=== PATIENT | male | born 1930 | race Caucasian/White ===

== ENCOUNTER 2016-12-18 22:30 | Inpatient (IN) | payer MEDICARE, OTHER ==
[2016-12-18] MEDS ORDERED: VANCOMYCIN 1,000 MG in SODIUM CHLORIDE 0.9% 250 ML IVPB STA (22:45)
[2016-12-18] MEDS ORDERED: PIPERACILLIN-TAZOBACTAM 3.375 GM in DEXTROSE/WATER 1 50ML.BAG IVPB STA (22:45)
[2016-12-18] MEDS ORDERED: DILTIAZEM 125 MG in SODIUM CHLORIDE 0.9% 100 ML IV ONE (22:56)
[2016-12-18 23:02] LABS: Basophils # (A) 0.1 k/uL (0-0.2); Basophils % (A) 0 %; CH 25.1; CHCM 31.2; Eosinophils % (A) 0 %; HCT 27.6 % (39.0-53.0); HDW 3.56; HGB 8.4 gm/dL (13.0-17.5); Hypochromasia Marked; Luc # (Auto) 0.27; Luc % (Auto) 1; Lymphocytes # (A) 0.3 k/uL (1.0-4.8); Lymphocytes % (A) 2 %; MCH 24.7 pg (25.0-35.0); MCHC 30.6 g/dL (31.0-37.0); MCV 80.7 fL (80.0-100.0); Mean Platelet Volume 7.2; Monocytes # (A) 1.2 k/uL (0-1.0); Monocytes % (A) 7 %; Neutrophils # (A) 16.7 k/uL (1.3-7.7); Neutrophils % (A) 90 %; Poikilocytosis Slight; RBC 3.42 m/uL (4.30-5.90); RDW 15.2 % (11.5-15.5); WBC 18.6 k/uL (3.8-10.6); WBC (Perox) 19.24
[2016-12-18 23:13] LABS: INR 2.3 (<1.1); Partial Thromboplastin Time 47.1 sec (22.0-30.0); Prothrombin Time 21.9 sec (9.0-12.0)
[2016-12-18] MEDS ORDERED: ACETAMINOPHEN TAB 500 MG TAB PO STA (23:15)
[2016-12-18 23:37] LABS: ALT 19 U/L (21-72); AST 32 U/L (17-59); Alkaline Phosphatase 94 U/L (38-126); Anion Gap 14 mmol/L; Blood Urea Nitrogen 20 mg/dL (9-20); Carbon Dioxide 22 mmol/L (22-30); Chloride 104 mmol/L (98-107); Glucose 220 mg/dL (74-99); Magnesium 1.4 mg/dL (1.6-2.3); Non-African American GFR(MDRD) >60 (>60 ml/min/1.73 sqM); Potassium 3.4 mmol/L (3.5-5.1); Sodium 140 mmol/L (137-145); Total Bilirubin 0.6 mg/dL (0.2-1.3); Total Protein 6.7 g/dL (6.3-8.2)
[2016-12-18 23:41] LABS: Creatine Kinase MB 3.5 ng/mL (0.0-2.4); Troponin I 0.912 ng/mL (0.000-0.034)
[2016-12-18] MEDS ORDERED: HEPARIN SODIUM,PORCINE 5,000 UNIT/ML 1 ML VIAL IV ONE (23:41)
[2016-12-18] MEDS ORDERED: HEPARIN SODIUM,PORCINE/D5W PMX 25,000 UNIT in DEXTROSE/WATER 1 500ML.BAG IV SCH (23:45)
--- NOTE | 2016-12-19 00:02 | ED ---
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 The patient reportedly had sudden onset of shortness of breath around 7 PM this evening. Upon arrival to the outside hospital his blood pressure was elevated any appear to be in flash pulmonary edema. He was started on BiPAP and given nitro paste and Lasix. He improved however remains tachycardic at their facility. There is also note of some ST depression in the lateral leads. Troponin was negative at the outside hospital. By the time the patient arrived here he appeared to not be in respiratory distress. He is awake and alert and answering questions. He denies any chest pain or history of chest pain today. Blood pressure was little bit low upon arrival and thus Nitropaste was taken off and he is given a 500 mL bolus with good result. Initial EKG showed atrial fibrillation with rapid ventricular rate and some ST depression in the lateral leads. Patient denies a history of A. fib however is on Coumadin. He currently denies any other complaints. The patient is DO NOT RESUSCITATE however is okay with intubation. - Related Data Home Medications Medication Instructions Recorded Confirmed Aspirin EC [Ecotrin Low Dose] 162 mg PO DAILY@79912/18/16 12/18/16 Atorvastatin [Lipitor] 10 mg PO HS@199912/18/16 12/18/16 Cholecalciferol [Vitamin D3] 2,000 unit PO DAILY@79912/18/16 12/18/16 Cyanocobalamin [Vitamin B-12 1,000 mcg SQ Q30D 12/18/16 12/18/16 Injection] Ferrous Sulfate [Feosol] 325 mg PO DAILY@79912/18/16 12/18/16 Isosorbide Mononitrate ER [Imdur] 30 mg PO DAILY@79912/18/16 12/18/16 Lactose-Reduced Food [Boost] 237 ml PO HS 12/18/16 12/18/16 Lansoprazole 30 mg PO DAILY@79912/18/16 12/18/16 Lisinopril [Zestril] 10 mg PO DAILY@0800 12/18/16 12/18/16 Melatonin 3 mg PO HS 12/18/16 12/18/16 Sertraline HCl [Zoloft] 50 mg PO DAILY@0800 12/18/16 12/18/16 Warfarin Sodium [Coumadin] 2 mg PO HS@199912/18/16 12/18/16 metFORMIN HCL [Glucophage] 500 mg PO BID@08,199912/18/16 12/18/16 Allergies Allergy/AdvReac Type Severity Reaction Status Date / Time No Known Allergies Allergy Verified 12/18/16 22:58 Review of Systems ROS Statement: Those systems with pertinent positive or pertinent negative responses have been documented in the HPI. ROS Other: All systems not noted in ROS Statement are negative. Past Medical History Past Medical History: Cancer, CVA/TIA, Diabetes Mellitus Additional Past Medical History / Comment(s): (L) sided weakness r/t previous stroke. History of Any Multi-Drug Resistant Organisms: Unobtainable Past Surgical History: Unable to Obtain Past Psychological History: Unable to Obtain Smoking Status: Never smoker Past Alcohol Use History: None Reported Past Drug Use History: None Reported General Exam - General Exam Comments Initial Comments: Constitutional: Awake alert Appears comfortable Head: Normocephalic atraumatic Eyes: no conjunctival injection No scleral icterus EOMI Neck: No JVD Supple Heart: Regular rate rhythm normal S1-S2 no murmurs Lungs: There is bilateral rales at the bases No wheezing Abdomen: Soft nondistended nontender Extremities: 1+ lower extremity edema DP pulses intact Radial pulses intact Neuro: A&Ox3 No focal neurologic deficits Psych: Appropriate mood and affect Limitations: no limitations Course Vital Signs 12/18/16 12/18/16 12/18/16 22:31 22:56 23:33 Temperature 99.4 F Pulse Rate 120 H 118 H 119 H Respiratory 28 H 24 28 H Rate Blood Pressure 89/64 109/72 93/44 O2 Sat by Pulse 100 100 100 Oximetry 12/18/16 23:52 Temperature Pulse Rate 107 H Respiratory 30 H Rate Blood Pressure 102/40 O2 Sat by Pulse 100 Oximetry - Reevaluation(s) Reevaluation #1: 12/19/16 00:01 EKG is showing atrial fibrillation with a rate of 128. There is significant ST depression in V3 through V6 with no reciprocal changes. Does not appear to be criteria for posterior STEMI. QTC is 540. Other intervals are normal. No ectopy. Medical Decision Making - Medical Decision Making This is an 86-year-old male presents emergency report for respiratory distress. The patient appear to be in flash pulmonary edema. Troponin is elevated head 0.9 and he does have evidence for an STEMI on his EKG. I spoke with Dr. Sánchez about this and he stated that he would see him in the morning. He did not think there is any emergent need for cardiac cath tonight. The patient has been comfortable on BiPAP since he arrived. He was started on Cardizem drip with good result. His blood pressure is now 102/64. The patient's heart rate is ranging from 100 to 1:15. At this time I feel that he is stable for transfer to the floor. Dr. Valenzuela accepts the admission. - Lab Data Result diagrams: 12/18/16 22:40 12/18/16 22:40 Lab Results 12/18/16 12/18/16 12/18/16 Range/Units 22:40 22:40 22:40 WBC 18.6 H (3.8-10.6) k/uL RBC 3.42 L (4.30-5.90) m/uL Hgb 8.4 L (13.0-17.5) gm/dL Hct 27.6 L (39.0-53.0) % MCV 80.7 (80.0-100.0) fL MCH 24.7 L (25.0-35.0) pg MCHC 30.6 L (31.0-37.0) g/dL RDW 15.2 (11.5-15.5) % Plt Count 394 (150-450) k/uL Neutrophils % 90 % Lymphocytes % 2 % Monocytes % 7 % Eosinophils % 0 % Basophils % 0 % Neutrophils # 16.7 H (1.3-7.7) k/uL Lymphocytes # 0.3 L (1.0-4.8) k/uL Monocytes # 1.2 H (0-1.0) k/uL Eosinophils # 0.0 (0-0.7) k/uL Basophils # 0.1 (0-0.2) k/uL Hypochromasia Marked Poikilocytosis Slight PT 21.9 H (9.0-12.0) sec INR 2.3 (<1.1) APTT 47.1 H (22.0-30.0) sec Sodium (137-145) mmol/L Potassium (3.5-5.1) mmol/L Chloride (98-107) mmol/L Carbon Dioxide (22-30) mmol/L Anion Gap mmol/L BUN (9-20) mg/dL Creatinine (0.66-1.25) mg/dL Est GFR (MDRD) Af Amer (>60 ml/min/1.73 sqM) Est GFR (MDRD) Non-Af (>60 ml/min/1.73 sqM) Glucose (74-99) mg/dL Plasma Lactic Acid Jero (0.7-2.0) mmol/L Calcium (8.4-10.2) mg/dL Magnesium (1.6-2.3) mg/dL Total Bilirubin (0.2-1.3) mg/dL AST (17-59) U/L ALT (21-72) U/L Alkaline Phosphatase (38-126) U/L CK-MB (CK-2) 3.5 H* (0.0-2.4) ng/mL Troponin I 0.912 H* (0.000-0.034) ng/mL NT-Pro-B Natriuret Pep pg/mL Total Protein (6.3-8.2) g/dL Albumin (3.5-5.0) g/dL 12/18/16 12/18/16 12/18/16 Range/Units 22:40 22:40 22:40 WBC (3.8-10.6) k/uL RBC (4.30-5.90) m/uL Hgb (13.0-17.5) gm/dL Hct (39.0-53.0) % MCV (80.0-100.0) fL MCH (25.0-35.0) pg MCHC (31.0-37.0) g/dL RDW (11.5-15.5) % Plt Count (150-450) k/uL Neutrophils % % Lymphocytes % % Monocytes % % Eosinophils % % Basophils % % Neutrophils # (1.3-7.7) k/uL Lymphocytes # (1.0-4.8) k/uL Monocytes # (0-1.0) k/uL Eosinophils # (0-0.7) k/uL Basophils # (0-0.2) k/uL Hypochromasia Poikilocytosis PT (9.0-12.0) sec INR (<1.1) APTT (22.0-30.0) sec Sodium 140 (137-145) mmol/L Potassium 3.4 L (3.5-5.1) mmol/L Chloride 104 (98-107) mmol/L Carbon Dioxide 22 (22-30) mmol/L Anion Gap 14 mmol/L BUN 20 (9-20) mg/dL Creatinine 1.13 (0.66-1.25) mg/dL Est GFR (MDRD) Af Amer >60 (>60 ml/min/1.73 sqM) Est GFR (MDRD) Non-Af >60 (>60 ml/min/1.73 sqM) Glucose 220 H (74-99) mg/dL Plasma Lactic Acid Jero 2.2 H* (0.7-2.0) mmol/L Calcium 8.0 L (8.4-10.2) mg/dL Magnesium 1.4 L (1.6-2.3) mg/dL Total Bilirubin 0.6 (0.2-1.3) mg/dL AST 32 (17-59) U/L ALT 19 L (21-72) U/L Alkaline Phosphatase 94 (38-126) U/L CK-MB (CK-2) (0.0-2.4) ng/mL Troponin I (0.000-0.034) ng/mL NT-Pro-B Natriuret Pep 07946 pg/mL Total Protein 6.7 (6.3-8.2) g/dL Albumin 2.6 L (3.5-5.0) g/dL Disposition Clinical Impression: Atrial fibrillation with RVR, NSTEMI (non-ST elevated myocardial infarction), Pulmonary edema Disposition: ADMITTED IP TO THIS HOSP Condition: Serious
[2016-12-19] MEDS ORDERED: NITROGLYCERIN SL TABS 0.4 MG TAB SUBLINGUAL PRN (00:04)
[2016-12-19] MEDS: MAGNESIUM SULFATE-D5W PMX 1 GM in DEXTROSE/WATER 1 100ML.BAG IVPB SCH ×2 (00:55→03:27)
[2016-12-19 04:15] LABS: INR 2.1 (<1.1); Partial Thromboplastin Time 48.8 sec (22.0-30.0); Prothrombin Time 19.8 sec (9.0-12.0)
[2016-12-19 05:15] LABS: Creatine Kinase MB 14.2 ng/mL (0.0-2.4)
[2016-12-19 08:28] LABS: Hemoglobin A1C 6.1 % (4.2-6.1)
[2016-12-19] MEDS: SERTRALINE 50 MG TAB PO SCH (08:40)
[2016-12-19] MEDS: PANTOPRAZOLE 40 MG TABLET PO SCH (08:40)
[2016-12-19 08:56] LABS: Glucose,Whole Blood 192 mg/dL (75-99)
[2016-12-19] MEDS ORDERED: LISINOPRIL 2.5 MG TAB PO SCH (09:00)
--- NOTE | 2016-12-19 09:29 | XR ---
EXAMINATION TYPE: XR chest 1V portable DATE OF EXAM: 12/19/2016 9:18 AM CLINICAL HISTORY: Heart attack and congestion, CHF. TECHNIQUE: Single AP portable upright view of the chest is obtained. COMPARISON: Outside chest x-ray from one day earlier FINDINGS: There is persistent mild cardiomegaly with central perihilar opacities felt to reflect hermes ma redemonstrated. Some increasing central vascular congestion is noted. Interval improvement in righ t midlung linear atelectasis is noted. No large pleural effusion or pneumothorax is seen bilaterally. Visualized osseous structures are intact. IMPRESSION: Mild cardiomegaly with central bilateral perihilar edema and/or infiltrates, suspect CHF exacerbation redemonstrated, slight worsening in central vascular congestion noted as there is increa sing bilateral hilar prominence present.
--- NOTE | 2016-12-19 10:51 | CONS ---
DATE OF CONSULTATION: Mr. Noble is an 86-year-old male who transferred from [facility]. He is not quite sure about his prior cardiac history, but apparently he has sustained a cerebrovascular accident recently. He presented to [facility] with symptoms of progressive dyspnea and had ST segment depression in the inferolateral leads, was transferred to [facility] for further evaluation. Apparently, the family initially wanted to go to [facility] but no bed was available. Patient denies any chest pain, but he is complaining of progressive dyspnea, cough. He denies any dizziness or palpitation. He sleeps in the chair because of his back. He has peripheral edema. He denies any prior knowledge of history of congestive heart failure or history of myocardial infarction. On presentation to the emergency room, he was in atrial fibrillation, subsequently converted back to sinus mechanism. He EKG initially showed ST segment depression that improved when he was back in sinus mechanism. Reviewing the EKG from [facility], there was significant ST segment depression in the inferolateral leads and he was tachycardic at that time. Patient has cough but no fever. He denies any history of significant obstructive lung disease. He is somewhat limited in his physical activity. His coronary risk factor is positive for hypertension, diabetes, hyperlipidemia. He is a nonsmoker. His medications include metformin, Coumadin, melatonin, Zestril 10 mg daily, isosorbide mononitrate 30 mg daily, iron, Lipitor 10 mg daily, aspirin. REVIEW OF SYSTEMS: RESPIRATORY SYSTEM: He has dyspnea on exertion and cough. No fever. GI SYSTEM: He denies any recent GI bleeding. No peptic ulcer disease. SYSTEM: No dysuria or hematuria. NERVOUS SYSTEM: He had the stroke as noted. PHYSICAL EXAMINATION: He is an 86-year-old male, alert, mildly dyspneic. Blood pressure 125/60 with a heart rate in the 80s. HEAD: Normocephalic. EYES: Sclerae nonicteric. Neck with increased jugular venous pressure. Lungs with crackles and rales at the bases. HEART: Regular rate and rhythm. S1, S2, no S3, with systolic murmur heard at the base. No diastolic murmur. No rub. ABDOMEN: Soft, nontender, positive bowel sounds. No organomegaly. EXTREMITIES: +1 edema bilaterally. Lab data revealed an INR of 2.3. Hemoglobin of 8.4. His BUN and creatinine are 20 and 1.1. His troponin 0.912 and 7.0. NT-proBNP 15,200. His plasma lactic acid was 2.2 yesterday, 1.4 today. His initial EKG revealed atrial fibrillation with a rate of [address] segment depression in the lateral leads and subsequent EKG. He is in sinus mechanism and the ST depression improved. IMPRESSION: 1. Evidence of non-ST segment elevation myocardial infarction. 2. Symptoms of congestive heart failure. The evaluation of his systolic function is not available to me. 3. Paroxysmal atrial fibrillation, anticoagulated. 4. Anemia of unknown duration. 5. Prior history of stroke. 6. History of hypertension. 7. History of hyperlipidemia. 8. History of diabetes mellitus. RECOMMENDATION: I discussed the finding with the patient. I have discussed with him the option including intervention versus noninvasive work-up. He is in favor of conservative treatment. He wants to be NO CODE. I will obtain echocardiogram, diurese him and depending on his progress, further recommendation will be made. The anemia will need to worked up. Unfortunately, the prognosis is guarded. Thank you for this consult. Will follow with you.
[2016-12-19 12:20] LABS: Creatine Kinase MB 20.9 ng/mL (0.0-2.4)
[2016-12-19 12:21] LABS: Troponin I 13.3 ng/mL (0.000-0.034)
[2016-12-19] MEDS: FUROSEMIDE 10 MG/ML 4 ML VIAL IV SCH ×2 (12:30→16:46)
[2016-12-19] MEDS: METOPROLOL TARTRATE 25 MG TAB PO SCH ×2 (12:36→20:21)
[2016-12-19] MEDS: metFORMIN 500 MG TAB PO SCH ×2 (12:37→20:21)
[2016-12-19] MEDS: LISINOPRIL 5 MG TAB PO SCH ×2 (12:37→20:21)
[2016-12-19] MEDS ORDERED: HEPARIN SODIUM,PORCINE 5,000 UNIT/ML 1 ML VIAL IV PRN (15:47)
[2016-12-19] MEDS ORDERED: HEPARIN SODIUM,PORCINE 5,000 UNIT/ML 1 ML VIAL IV ONE (15:47)
[2016-12-19] MEDS: HEPARIN SODIUM,PORCINE/D5W PMX 25,000 UNIT in DEXTROSE/WATER 1 500ML.BAG IV SCH ×2 (16:40→17:01)
[2016-12-19] MEDS ORDERED: WARFARIN 2 MG TAB PO SCH (18:00)
[2016-12-19] MEDS ORDERED: ATORVASTATIN 10 MG TAB PO SCH (20:00)
[2016-12-19] MEDS ORDERED: ZOLPIDEM 5 MG TAB PO PRN (20:12)
[2016-12-19] MEDS: ATORVASTATIN 40 MG TAB PO SCH (20:21)
[2016-12-19] MEDS ORDERED: METOPROLOL TARTRATE 25 MG TAB PO STA (20:51)
[2016-12-19] MEDS: FUROSEMIDE 250 MG in SODIUM CHLORIDE 0.9% 225 ML IVP SCH (20:57)
[2016-12-19 20:59] LABS: Glucose,Whole Blood 256 mg/dL (75-99)
[2016-12-19] MEDS: IPRATROPIUM-ALBUTEROL 3 ML NEB INHALATION PRN (20:59)
[2016-12-19] MEDS ORDERED: IPRATROPIUM-ALBUTEROL 3 ML NEB INHALATION SCH (21:00)
--- NOTE | 2016-12-19 21:03 | XR ---
EXAMINATION TYPE: XR chest 1V portable DATE OF EXAM: 12/19/2016 8:54 PM COMPARISON: 12/19/2016 HISTORY: Short of breath TECHNIQUE: Single frontal view of the chest is obtained. FINDINGS: There is pulmonary edema. Heart appears enlarged. There are chest leads. I see no definite pleural effusion. IMPRESSION: There is pulmonary alveolar edema that is the same or worse than the exam this morning a t 9:00 AM. I would consider acute heart failure and RDS.
[2016-12-19] MEDS: MELATONIN 3 MG TABLET PO SCH (22:04)
--- NOTE | 2016-12-19 22:52 | HP ---
DATE OF ADMISSION: 12/19/2016 PRESENTING COMPLAINT: Short of breath. HISTORY OF PRESENTING COMPLAINT: This is an 86-year-old patient was transferred from [facility]. He has a past history of diabetes, atrial fibrillation, hypertension. He became short of breath and was found to have acute pulmonary edema. Patient had significant ST-segment changes in inferolateral leads and came here, ruled in for acute SC. Patient was seen by Cardiology, Dr. Sánchez, earlier today. Apparently cardiac catheterization was offered, but patient wanted conservative treatment. Hence patient was put on IV heparin. Patient initially had been in atrial fibrillation with a heart rate up to 120s and then switched over to sinus rhythm. Patient also has pulmonary edema. The patient is also wheezing, has got a cough, and he thinks he is bringing up some phlegm, too. REVIEW OF SYSTEMS: CONSTITUTIONAL: Weak and tired. HEENT: None. RESPIRATORY: Short of breath, cough, some phlegm. CARDIOVASCULAR: Some pressure, shortness of breath, edema. ABDOMEN: None. GENITOURINARY: None. MUSCULOSKELETAL: None. HEMATOLOGIC: None. LYMPHATICS: None. PSYCHIATRY: Some anxiety. NEUROLOGICAL: None. PAST MEDICAL HISTORY: 1. Stroke. 2. Diabetes. 3. Some left-sided weakness from previous stroke. 4. Atrial fibrillation. 5. Hypertension. PAST SURGICAL HISTORY: Joint replacement. SOCIAL HISTORY: Patient is retired, for a year. Stopped smoking 25 years ago; smoked for about 20 to 25 years. FAMILY HISTORY: Cancer. HOME MEDICATIONS: 1. Metformin 500 mg p.o. b.i.d. 2. Coumadin 2 mg at bedtime. 3. Zoloft 50 mg daily. 4. Melatonin 3 mg at bedtime. 5. Zestril 10 mg p.o. daily. 6. Protonix 30 mg daily. 7. Boost one can at bedtime. 8. Imdur ER 30 mg daily. 9. Iron 325 p.o. daily. 10. Vitamin B12 1000 mcg subcutaneously every 30 days. 11. Vitamin D3 2000 units p.o. daily. 12. Lipitor 10 mg at bedtime. 13. Aspirin 162 mg p.o. daily. ALLERGIES: NONE. On examination, temperature 99.4, pulse 120, respiration 28, blood pressure 89/64, pulse ox 100% on BiPAP on presentation. Currently sitting up in bed. Short of breath at rest. EYES: Pupils equal. Conjunctivae normal. HEENT: External appearance of nose and ears normal. Oral cavity normal. NECK: JVD raised. Mass not palpable. RESPIRATORY: Effort increased. Accessory muscles are working. Patient is not able to speak in full sentences. LUNGS: Diminished breath sounds. Scattered crackles. Some coarse breath sounds and wheezing. CARDIOVASCULAR: First and second sounds normal. Edema present. ABDOMEN: Soft, nontender. Liver and spleen not palpable. LYMPHATIC: No lymph node palpable in neck or axillae. PSYCHIATRY: Alert and oriented x3. Mood and affect anxious-appearing. NEUROLOGICAL: Pupils equal. Cranial nerves grossly intact. Power and sensation grossly intact. INVESTIGATIONS: White count 18.6, hemoglobin 8.4. INR 2.3. Potassium 3.4. Plasma lactic acid was 2.2. Magnesium 1.4. Troponin was 0.912. Repeat was 7 and went up to 13. Albumin 2.6. Patient's initial EKG showed ST-segment depression from V2 to V6 ( ) inferior leads. Chest x-ray shows edema and also possibly infiltrates. ASSESSMENT: 1. Acute wet-VO-[id number] myocardial infarction affecting the inferolateral wall. 2. Acute flash pulmonary edema from above. 3. Possible pneumonia, given a white count. Patient is coughing up some sputum and there are some patchy infiltrates, which also could be from edema. 4. Acute chronic obstructive pulmonary disease exacerbation in an ex-smoker. Patient could also be having cardiac wheezing. 5. Primary osteoarthritis in multiple joints. 6. Paroxysmal atrial fibrillation. Patient is chronically on Coumadin. 7. Intravenous heparin monitoring. 8. Acute respiratory failure from flash pulmonary edema, present on admission. Two-D echo was ordered this morning. 9. CODE STATUS: Patient wants to be DNR. PLAN: When I saw the patient, he was quite short of breath. Patient is already on IV heparin, aspirin, beta john. Will start the patient on Lasix drip. Will add Zosyn and nebulized bronchodilators. Also will get a pulmonary opinion. Overall prognosis is guarded. This was discussed with the patient.
[2016-12-19] MEDS: PIPERACILLIN-TAZOBACTAM 3.375 GM in DEXTROSE/WATER 1 50ML.BAG IVPB SCH (23:23)
[2016-12-20] MEDS: ACETAMINOPHEN TAB 325 MG TAB PO PRN (02:57)
[2016-12-20] MEDS ORDERED: IPRATROPIUM-ALBUTEROL 3 ML NEB INHALATION SCH (04:00)
[2016-12-20 06:41] LABS: Basophils % (A) 0 %; CH 24.7; CHCM 31.4; Eosinophils % (A) 0 %; HCT 26.6 % (39.0-53.0); HDW 3.64; HGB 8.7 gm/dL (13.0-17.5); Hypochromasia Moderate; Luc % (Auto) 3; Lymphocytes # (A) 0.6 k/uL (1.0-4.8); Lymphocytes % (A) 4 %; MCH 25.8 pg (25.0-35.0); MCHC 32.6 g/dL (31.0-37.0); MCV 79.1 fL (80.0-100.0); Mean Platelet Volume 7.6; Monocytes % (A) 6 %; Neutrophils # (A) 13.8 k/uL (1.3-7.7); Neutrophils % (A) 87 %; Poikilocytosis Slight; RBC 3.36 m/uL (4.30-5.90); RDW 15.2 % (11.5-15.5); WBC 15.9 k/uL (3.8-10.6); WBC (Perox) 16.96
[2016-12-20 06:46] LABS: INR 2.9 (<1.1); Partial Thromboplastin Time 56.3 sec (22.0-30.0); Prothrombin Time 28.2 sec (9.0-12.0)
[2016-12-20] MEDS: HEPARIN SODIUM,PORCINE/D5W PMX 25,000 UNIT in DEXTROSE/WATER 1 500ML.BAG IV SCH (06:48)
[2016-12-20 06:56] LABS: Glucose,Whole Blood 203 mg/dL (75-99)
[2016-12-20 07:02] LABS: Anion Gap 12 mmol/L; Blood Urea Nitrogen 26 mg/dL (9-20); Calcium 7.9 mg/dL (8.4-10.2); Carbon Dioxide 26 mmol/L (22-30); Chloride 103 mmol/L (98-107); Cholesterol 112 mg/dL (<200); Glucose 196 mg/dL (74-99); HDL Cholesterol 29 mg/dL (40-60); Non-African American GFR(MDRD) 52 (>60 ml/min/1.73 sqM); Potassium 3.1 mmol/L (3.5-5.1); Sodium 141 mmol/L (137-145); Triglycerides 106 mg/dL (<150)
[2016-12-20] MEDS: METOPROLOL TARTRATE 25 MG TAB PO SCH ×2 (08:26→22:40)
[2016-12-20] MEDS: metFORMIN 500 MG TAB PO SCH ×2 (08:26→22:39)
[2016-12-20] MEDS: LISINOPRIL 5 MG TAB PO SCH ×2 (08:26→22:39)
[2016-12-20] MEDS: SERTRALINE 50 MG TAB PO SCH (08:26)
[2016-12-20] MEDS: PANTOPRAZOLE 40 MG TABLET PO SCH (08:26)
[2016-12-20] MEDS: ISOSORBIDE MONONITRATE ER 30 MG TAB.ER.24H PO SCH (08:26)
[2016-12-20] MEDS: ASPIRIN 81 MG CHEW PO SCH (08:26)
[2016-12-20] MEDS: PIPERACILLIN-TAZOBACTAM 3.375 GM in DEXTROSE/WATER 1 50ML.BAG IVPB SCH ×3 (08:29→23:38)
[2016-12-20] MEDS: IPRATROPIUM-ALBUTEROL 3 ML NEB INHALATION SCH ×4 (08:34→20:35)
[2016-12-20] MEDS ORDERED: Potassium Replacement Protocol 1 EACH MISC MISCELLANE PRN (08:51)
[2016-12-20] MEDS ORDERED: ASPIRIN 325 MG TAB PO SCH (09:00)
[2016-12-20] MEDS: POTASSIUM CHLORIDE ER 20 MEQ TAB.ER PO SCH ×2 (10:08→12:20)
--- NOTE | 2016-12-20 10:28 | PN ---
Mr. Noble is an 86-year-old male who was transferred with symptoms of progressive dyspnea. He is feeling better today. His breathing is better. He continued to be in sinus mechanism. He has no chest pain. He denies any dizziness or palpitation. He denies any nausea. He was started on IV Lasix drip yesterday. He has a good diuresis. Hemodynamically, he is stable. He continues to be on aspirin, Lipitor 40 mg daily, lisinopril 5 mg twice a day, metoprolol tartrate 25 mg twice a day. He was started on antibiotics and he is on metformin. He is on the IV Lasix as noted. PHYSICAL EXAMINATION: Blood pressure 116/60 with the heart rate in the 80s. LUNGS: With scattered rhonchi and rales bilaterally. HEART: Regular rate and rhythm. S1, S2, no S3, with systolic murmur. No diastolic murmur. No rub. ABDOMEN: Soft and nontender. EXTREMITIES: No significant edema. Lab data revealed BUN and creatinine of 26 and 1.3. Potassium 3.1. Hemoglobin of 8.7. INR of 2.9. IMPRESSION: 1. Evidence of non- ST segment elevation myocardial infarction. His troponin peaked at 13. He had ST segment depression inferolateral leads. 3. Probable pulmonary infection, the patient was febrile. 4. Anemia. 5. History of paroxysmal atrial fibrillation, anticoagulated. 6. History of hypertension. 7. History of diabetes mellitus. 8. History of hyperlipidemia. RECOMMENDATIONS: From the cardiac standpoint, I will continue on the IV Lasix for another 24 hours, follow his renal function. I will review the results of his echocardiogram, follow his hemoglobin. Will continue on the anticoagulation with the Coumadin. Follow his prothrombin time. Will hold the Coumadin today. Unfortunately, his prognosis remains guarded. JORGE
--- NOTE | 2016-12-20 11:09 | ECHOF ---
Referral Reason:mi MEASUREMENTS -------- HEIGHT: 152.4 cm WEIGHT: 96.2 kg BP: IVSd: 1.3 cm (0.6 - 1.1) LVIDd: 4.4 cm (3.9 - 5.3) LVPWd: 1.5 cm (0.6 - 1.1) IVSs: 1.6 cm LVIDs: 3.8 cm LVPWs: 1.5 cm LAESV Index (A-L): 29.60 ml/m MV EXCURSION: 17.180 mm (> 18.000) MV EF SLOPE: 67 mm/s (70 - 150) EPSS: 0.4 cm MV E Lennox: 0.82 m/s MV DecT: 198 ms MV A Lennox: 0.71 m/s MV E/A Ratio: 1.15 AV maxP.15 mmHg AV meanP.81 mmHg FINDINGS -------- Sinus rhythm. This was a technically adequate study. There is mild concentric left ventricular hypertrophy. There is moderate global hypokinesis of LV . Overall left ventricular systolic function is moderately impaired with, an EF between 35 - 40 %. Pseudonormal LV filling pattern, consistent with elevated LA pressure. The right ventricle is normal in size. LA is midly dilated 29-33ml/m2. The right atrial size is normal. Aov is not visulized well, is stenotic with Decreased opening and gradient is underestimated. Mild mitral annular calcification present. Mild mitral regurgitation is present. Mild tricuspid regurgitation present. There is mild pulmonary hypertension. The right ventricular systolic pressure, as measured by Doppler, is {RVSP}. The pulmonic valve was not well visualized. The aortic root size is normal. There is no pericardial effusion. CONCLUSIONS -------- 1. There is mild concentric left ventricular hypertrophy. 2. There is mild pulmonary hypertension. 3. The right ventricular systolic pressure, as measured by Doppler, is {RVSP}. 4. The pulmonic valve was not well visualized. 5. The aortic root size is normal. 6. There is no pericardial effusion. 7. There is moderate global hypokinesis of LV . 8. Overall left ventricular systolic function is moderately impaired with, an EF between 35 - 40 %. 9. Pseudonormal LV filling pattern, consistent with elevate LA pressure. 10. LA is midly dilated 29-33ml/m2. 11. Aov is not visulized well, is stenotic with Decreased opening and gradient is underestimated. 12. Mild mitral annular calcification present. 13. Mild mitral regurgitation is present. 14. Mild tricuspid regurgitation present. CORPORATE INTERN: Shaye Orantes RDCS
[2016-12-20 12:09] LABS: Glucose,Whole Blood 184 mg/dL (75-99)
--- NOTE | 2016-12-20 14:58 | P.CNPUL ---
History of Present Illness Consult date: 12/20/16 Reason for consult: dyspnea History of present illness: 86-year-old male patient who is currently experiencing shortness of breath and he has developed diffuse breath and pulmonary infiltrates consistent with acute pulmonary edema with possible superimposed pneumonia. For this reason a pulmonary cath patient was requested. The patient is known to have diabetes and hypertension and chronic atrial fibrillation. The patient presented to the hospital because of increased cough and chest discomfort and he had ST segment changes in the inferolateral leads and he ruled in for myocardial infarction. At that point, the patient was started on IV heparin, cardiology consultation was requested and the patient declined to undergo any cardiac interventions/ catheterization. During his hospital stay, the patient became progressively more short of breath and I reviewed a series of chest x-rays was done since his admission and the patient developed diffuse but the pulmonary infiltrates, that are consistent with acute pulmonary edema and based on that he was started on a Lasix drip for diuresis. Note that his echocardiogram showed impaired LV function with an ejection fraction of 35% and the patient had mild concentric left hypertrophy, mild pulmonary hypertension, no other valvular disruption. Another concern is that the patient is having a superimposed pneumonia in addition to pulmonary edema. The patient is coughing out thick yellowish sputum yet he is afebrile and he denies having any pleurisy. His white count was elevated at time of admission at 18 and the permanent blood cultures showing gram-positive cocci and clusters. He did spike one temperature of 100.5 around midnight. Currently is on IV Zosyn. Note that the patient had a recent stroke approximately 3 months ago and he suffers from left-sided weakness. Nevertheless, he denies having any difficulties with swallowing food or any aspiration. Review of Systems Review of system was done and the positive findings are almost above history of present illness Past Medical History Past Medical History: Cancer, CVA/TIA, Diabetes Mellitus, Fibromyalgia Additional Past Medical History / Comment(s): Acute myocardial infarction, coronary artery disease, recent CVA with residual left-sided weakness, diabetes mellitus, hyperlipidemia, chronic renal insufficiency, iron deficiency, chronic anemia, chronic atrial fibrillation the patient has been maintained on long- term articulation with warfarin, depression History of Any Multi-Drug Resistant Organisms: Unobtainable Past Surgical History: Joint Replacement Past Anesthesia/Blood Transfusion Reactions: No Reported Reaction Past Psychological History: Unable to Obtain Smoking Status: Never smoker Past Alcohol Use History: None Reported Past Drug Use History: None Reported - Past Family History Mother Family Medical History: Cancer Medications and Allergies Home Medications Medication Instructions Recorded Confirmed Type Aspirin EC [Ecotrin Low Dose] 162 mg PO DAILY@0800 12/18/16 12/18/16 History Atorvastatin [Lipitor] 10 mg PO HS@199912/18/16 12/18/16 History Cholecalciferol [Vitamin D3] 2,000 unit PO DAILY@0800 12/18/16 12/18/16 History Cyanocobalamin [Vitamin B-12 1,000 mcg SQ Q30D 12/18/16 12/18/16 History Injection] Ferrous Sulfate [Feosol] 325 mg PO DAILY@0800 12/18/16 12/18/16 History Isosorbide Mononitrate ER [Imdur] 30 mg PO DAILY@0800 12/18/16 12/18/16 History Lactose-Reduced Food [Boost] 237 ml PO HS 12/18/16 12/18/16 History Lansoprazole 30 mg PO DAILY@0812/18/16 12/18/16 History Lisinopril [Zestril] 10 mg PO DAILY@0812/18/16 12/18/16 History Melatonin 3 mg PO HS 12/18/16 12/18/16 History Sertraline HCl [Zoloft] 50 mg PO DAILY@0812/18/16 12/18/16 History Warfarin Sodium [Coumadin] 2 mg PO HS@199912/18/16 12/18/16 History metFORMIN HCL [Glucophage] 500 mg PO BID@799,199912/18/16 12/18/16 History Allergies Allergy/AdvReac Type Severity Reaction Status Date / Time No Known Allergies Allergy Verified 12/18/16 22:58 Physical Exam Vitals: Vital Signs Temp Pulse Pulse Resp BP Pulse Ox 12/20/16 14:19 83 16 12/20/16 12:16 99 12/20/16 12:00 83 16 115/50 97 12/20/16 11:52 96 12/20/16 11:38 81 12/20/16 08:46 100 12/20/16 08:37 99 100 12/20/16 08:00 98.2 F 81 16 116/60 100 12/20/16 04:00 99.6 F 89 20 128/63 100 12/20/16 00:00 100.5 F H 91 21 138/64 97 12/19/16 20:55 92 12/19/16 20:45 92 12/19/16 20:00 99.5 F 127 H 28 H 161/97 93 L 12/19/16 16:00 82 16 123/63 99 Intake and Output 12/19/16 12/20/16 12/20/16 22:59 06:59 14:59 Intake Total 582 1063.892 320 Output Total 1900 1025 800 Balance -1318 38.892 -480 Intake: IV 412 441.6 0.9 160 160 Heparin Sodium,Porcine/ 252 281.6 D5w Pmx 25,000 unit In Dextrose/Water 1 500ml. bag @ 12 UNITS/KG/HR 22. 08 mls/hr IV .[id number] [facility] Rx#:[id number] Intake, IV Titration 50 502.292 80 Amount Furosemide 250 mg In 80 Sodium Chloride 0.9% 225 ml @ 10 MG/HR 10 mls/hr IVP .Q24H [facility] Rx#: [id number] Heparin Sodium,Porcine/ 452.292 D5w Pmx 25,000 unit In Dextrose/Water 1 500ml. bag @ 10.8 UNITS/KG/HR 19 .87 mls/hr IV .Q24H [facility] Rx#:[id number] Piperacillin-Tazobactam 3 50 50 .375 gm In Dextrose/Water 1 50ml.bag @ 12.5 mls/hr IVPB Q8HR [facility] Rx#: [id number] Oral 120 120 240 Output: Urine 1900 1025 800 Other: Voiding Method Indwelling Catheter Indwelling Catheter Indwelling Catheter # Voids 0 Weight 90.5 kg Head exam was generally normal. There was no scleral icterus or corneal arcus. Mucous membranes were moist.Neck was supple and without jugular venous distension, thyromegaly, or carotid bruits. Carotids were easily palpable bilaterally. There was no adenopathy. Lung sounds are diminished bilaterally along with some crackles in the mid and lower lung his bilaterally. Heart sounds are irregular, positive S1-S2 and there is no cervical murmurs appreciated.Abdominal exam revealed normal bowel sounds. The abdomen was soft, non-tender, and without masses, organomegaly, or appreciable enlargement of the abdominal aorta.Examination of the extremities revealed easily palpable radial, femoral and pedal pulses. There was no cyanosis, clubbing or edema. Results - Laboratory Findings CBC and BMP: 12/20/16 06:14 12/20/16 06:14 PT/INR, D-dimer PT 28.2 sec (9.0-12.0) H 12/20/16 06:14 INR 2.9 (<1.1) 12/20/16 06:14 Abnormal lab findings: Abnormal Labs 12/19/16 12/19/16 12/19/16 03:15 03:15 08:54 WBC RBC Hgb Hct MCV Neutrophils # Lymphocytes # PT 19.8 H APTT 48.8 H Potassium BUN Creatinine Glucose POC Glucose (mg/dL) 192 H Calcium Total Creatine Kinase 299 H CK-MB (CK-2) 14.2 H* Troponin I 7.000 H* HDL Cholesterol 12/19/16 12/19/16 12/19/16 11:06 11:06 20:57 WBC RBC Hgb Hct MCV Neutrophils # Lymphocytes # PT APTT 43.6 H Potassium BUN Creatinine Glucose POC Glucose (mg/dL) 256 H Calcium Total Creatine Kinase 312 H CK-MB (CK-2) 20.9 H* Troponin I 13.300 H* HDL Cholesterol 12/19/16 12/20/16 12/20/16 22:40 06:14 06:14 WBC RBC Hgb Hct MCV Neutrophils # Lymphocytes # PT 28.2 H APTT 42.2 H 56.3 H Potassium 3.1 L BUN 26 H Creatinine 1.30 H Glucose 196 H POC Glucose (mg/dL) Calcium 7.9 L Total Creatine Kinase CK-MB (CK-2) Troponin I HDL Cholesterol 29 L 12/20/16 12/20/16 12/20/16 06:14 06:52 11:56 WBC 15.9 H RBC 3.36 L Hgb 8.7 L Hct 26.6 L MCV 79.1 L Neutrophils # 13.8 H Lymphocytes # 0.6 L PT APTT Potassium BUN Creatinine Glucose POC Glucose (mg/dL) 203 H 184 H Calcium Total Creatine Kinase CK-MB (CK-2) Troponin I HDL Cholesterol - Diagnostic Findings Chest x-ray: image reviewed Assessment and Plan Plan: Assessment 1 acute inferolateral wall myocardial infarction, currently free of any chest pain 2 CHF with impaired LV function with ejection fraction of 35% 3 acute pulmonary edema. Superimposed pneumonia is also considered. Patient is currently on Lasix drip. The patient is on Zosyn. 4 gram-positive cocci in the blood, and clusters, likely coagulase-negative staph or a contaminant 5 chronic anemia 6 CVA with residual left-sided weakness 7 hypertension 8 hyperlipidemia Plan Obtain a follow-up chest x-ray today. No need for any antibiotic modifications the patient's x-rays improving. We'll continue the Lasix drip. The patient has declined cardiac catheterization. He was to go with conservative measures of treatment, essentially medical management. Watch for any aspirations. We will continue to follow.
--- NOTE | 2016-12-20 15:45 | XR ---
EXAMINATION TYPE: XR chest 1V DATE OF EXAM: 12/20/2016 3:39 PM COMPARISON: 12/19/2016 HISTORY: 86-year-old male follow-up pneumonia, CHF, shortness of breath and cough. TECHNIQUE: Single frontal view of the chest is obtained. FINDINGS: Heart remains borderline enlarged. Diffuse airspace opacity persists but shows improving aeration in the upper lungs. There may be a trace right pleural effusion. Questionable nodular density at the lef t upper lung. IMPRESSION: Diffuse airspace disease persists but shows improving aeration in the upper lungs. Findings could rep resent improving multifocal pneumonia or pulmonary edema. Follow-up to complete clearance. A pulmonary nodule in the left upper lobe can be excluded after jonelle ring.
[2016-12-20 16:32] LABS: Glucose,Whole Blood 160 mg/dL (75-99)
[2016-12-20] MEDS: FUROSEMIDE 250 MG in SODIUM CHLORIDE 0.9% 225 ML IVP SCH (18:04)
--- NOTE | 2016-12-20 18:47 | PN ---
DATE OF SERVICE: 12/20/2016 PRESENTING COMPLAINT: Shortness of breath. This is a patient who presented with acute non-ST elevation myocardial infarction and acute flash pulmonary edema. Patient declined the cardiac cath ( ) conservative management. Put on IV, put the patient on Lasix drip last night. Patient did diurese well. Also had COPD exacerbation. Breathing is somewhat better. Also suspected to have underlying pneumonia; suspect underlying pneumonia for which patient was put on Zosyn. This morning patient was seen and feeling somewhat better and more resting. Less chest pain, tired. Review of systems done for constitutional, cardiovascular, GI, pulmonary; relevant findings as above. Current medications are reviewed and include IV Lasix drip, IV Zosyn, DuoNeb. On examination, T-max 100.5, pulse 81, respirations 22, blood pressure 116/68, pulse ox 97% on 6 liters. GENERAL APPEARANCE: Propped up in bed, tired -appearing. EYES: Pupils equal, conjunctivae normal. NECK: JVD raised. Mass not palpable. RESPIRATORY: Effort increased. LUNGS: Diminished breath sounds. CARDIOVASCULAR: First and second sounds normal. No edema. ABDOMEN: Soft, nontender. Liver and spleen not palpable. PSYCHIATRY: Alert and oriented x3. Mood and affect tired appearing. INVESTIGATIONS: White count 15.9, hemoglobin 8.7, potassium 3.1, BUN 26, creatinine 1.30. Accu-Cheks are noted. A chest x-ray chest shows cardiomegaly and some pulmonary edema. Still possible infiltrates are present. 2-D echocardiogram shows EF of 35% to 40%. ASSESSMENT: 1. Acute [id number] myocardial infarction affecting the inferolateral wall causing acute flash pulmonary edema on presentation. 2. Suspected pneumonia, suspect gram-negative organism. Patient is on IV Zosyn. 3. Acute chronic obstructive pulmonary disease exacerbation in an ex-smoker, could have been cardiac, wheezing with some clinical improvement. 4. Primary osteoarthritis multiple joints, bilateral. 5. Paroxysmal atrial fibrillation, chronically on Coumadin. 6. IV heparin monitoring. 7. Acute respiratory failure hypoxic from flash pulmonary edema, present on admission, from congestive heart failure; ejection fraction 30% to 35%. 8. CODE STATUS: DNR. PLAN: Continue current medications and treatment plan. Overall prognosis is guarded. Care was discussed with the patient. Will follow.
[2016-12-20] MEDS ORDERED: WARFARIN 2 MG TAB PO SCH (20:00)
[2016-12-20 21:11] LABS: Glucose,Whole Blood 199 mg/dL (75-99)
[2016-12-20] MEDS: ATORVASTATIN 40 MG TAB PO SCH (22:39)
[2016-12-20] MEDS: MELATONIN 3 MG TABLET PO SCH (22:40)
[2016-12-21 06:39] LABS: Basophils % (A) 0 %; CH 24.5; CHCM 31.4; Eosinophils # (A) 0.1 k/uL (0-0.7); Eosinophils % (A) 1 %; HCT 24.5 % (39.0-53.0); HDW 3.79; HGB 7.5 gm/dL (13.0-17.5); Hypochromasia Marked; Luc # (Auto) 0.19; Luc % (Auto) 2; Lymphocytes # (A) 0.4 k/uL (1.0-4.8); Lymphocytes % (A) 5 %; MCHC 30.6 g/dL (31.0-37.0); MCV 78.4 fL (80.0-100.0); Mean Platelet Volume 7.6; Monocytes # (A) 0.5 k/uL (0-1.0); Monocytes % (A) 6 %; Neutrophils # (A) 7.1 k/uL (1.3-7.7); Neutrophils % (A) 85 %; Poikilocytosis Slight; RBC 3.13 m/uL (4.30-5.90); RDW 15.1 % (11.5-15.5); WBC 8.4 k/uL (3.8-10.6); WBC (Perox) 9.04
[2016-12-21 06:41] LABS: Glucose,Whole Blood 151 mg/dL (75-99)
[2016-12-21 06:50] LABS: INR 2.2 (<1.1); Partial Thromboplastin Time 29.9 sec (22.0-30.0); Prothrombin Time 21.1 sec (9.0-12.0)
[2016-12-21 06:54] LABS: Anion Gap 9 mmol/L; Blood Urea Nitrogen 29 mg/dL (9-20); Calcium 7.9 mg/dL (8.4-10.2); Carbon Dioxide 32 mmol/L (22-30); Chloride 106 mmol/L (98-107); Glucose 143 mg/dL (74-99); Magnesium 1.4 mg/dL (1.6-2.3); Non-African American GFR(MDRD) 52 (>60 ml/min/1.73 sqM); Sodium 147 mmol/L (137-145)
[2016-12-21] MEDS ORDERED: POTASSIUM CHLORIDE ER 20 MEQ TAB.ER PO SCH ×2 (08:00→09:00)
[2016-12-21] MEDS: PIPERACILLIN-TAZOBACTAM 3.375 GM in DEXTROSE/WATER 1 50ML.BAG IVPB SCH ×2 (09:39→16:42)
[2016-12-21] MEDS: POTASSIUM CHLORIDE ER 20 MEQ TAB.ER PO SCH ×3 (09:41→21:49)
[2016-12-21] MEDS: ISOSORBIDE MONONITRATE ER 30 MG TAB.ER.24H PO SCH (09:42)
[2016-12-21] MEDS: PANTOPRAZOLE 40 MG TABLET PO SCH (09:42)
[2016-12-21] MEDS: metFORMIN 500 MG TAB PO SCH ×2 (09:42→21:48)
[2016-12-21] MEDS: LISINOPRIL 5 MG TAB PO SCH ×2 (09:42→21:48)
[2016-12-21] MEDS: METOPROLOL TARTRATE 25 MG TAB PO SCH ×2 (09:42→21:49)
[2016-12-21] MEDS: ASPIRIN 81 MG CHEW PO SCH (09:43)
[2016-12-21] MEDS: SERTRALINE 50 MG TAB PO SCH (09:43)
[2016-12-21] MEDS: IPRATROPIUM-ALBUTEROL 3 ML NEB INHALATION SCH ×4 (11:19→21:09)
[2016-12-21 11:54] LABS: Glucose,Whole Blood 165 mg/dL (75-99)
--- NOTE | 2016-12-21 14:07 | P.PN ---
Subjective Principal diagnosis: Non-STEMI This is a pleasant 86-year-old gentleman who is transferred here with symptoms of progressive dyspnea. He was found to be in A. fib with RVR with flash pulmonary edema and positive for non-ST elevated OH. He has been on Lasix IV drip at 10. Chest x-ray done today showed improvement. Echocardiogram showed an ejection fraction of 35-40%. Potassium is low at 3.0 and is being replaced. Hemoglobin as low as 7.5, INR 2.2. Renal function is stable at 29 and 1.31. On examination today, patient is feeling quite a bit better. He denies complaints of shortness of breath. He does complain of a cough unable to expectorate sputum. He denies complaints of chest discomfort, palpitations, dizziness, lightheadedness. Objective - Vital Signs Vital signs: Vital Signs Temp 97.6 F 12/21/16 11:56 Pulse 80 12/21/16 11:57 Resp 16 12/21/16 11:57 BP 111/53 12/21/16 11:56 Pulse Ox 96 12/21/16 11:56 Intake & Output 12/20/16 12/21/16 12/21/16 18:59 06:59 18:59 Intake Total 531.167 180 Output Total 1800 2150 750 Balance -1268.833 -2150 -570 Weight 88.5 kg Intake: Intake, IV Titration 291.167 Amount Furosemide 250 mg In 291.167 Sodium Chloride 0.9% 225 ml @ 10 MG/HR 10 mls/hr IVP .Q24H [facility] Rx#: [id number] Oral 240 180 Output: Urine 1800 2150 750 Uretheral (Field) 750 Other: Voiding Method Indwelling Catheter Indwelling Catheter Indwelling Catheter # Voids 1 2 - Exam PHYSICAL EXAMINATION: HEENT: Head is atraumatic, normocephalic. Pupils equal, round. Neck is supple. There is no elevated jugular venous pressure. HEART EXAMINATION: Heart sounds regular, S1 and S2 with a systolic murmur. CHEST EXAMINATION: Lungs with scattered rhonchi throughout. No chest wall tenderness is noted on palpation or with deep breathing. ABDOMEN: Soft, nontender. Bowel sounds are heard. No organomegaly noted. EXTREMITIES: 2+ peripheral pulses with no evidence of peripheral edema and no calf tenderness noted. NEUROLOGIC patient is awake, alert . . - Labs CBC & Chem 7: 12/21/16 06:12 12/21/16 06:12 Labs: Abnormal Lab Results - Last 24 Hours (Table) 12/20/16 12/20/16 12/21/16 Range/Units 16:31 20:55 06:12 RBC 3.13 L (4.30-5.90) m/uL Hgb 7.5 L (13.0-17.5) gm/dL Hct 24.5 L (39.0-53.0) % MCV 78.4 L (80.0-100.0) fL MCH 24.0 L (25.0-35.0) pg MCHC 30.6 L (31.0-37.0) g/dL Lymphocytes # 0.4 L (1.0-4.8) k/uL PT (9.0-12.0) sec Sodium (137-145) mmol/L Potassium (3.5-5.1) mmol/L Carbon Dioxide (22-30) mmol/L BUN (9-20) mg/dL Creatinine (0.66-1.25) mg/dL Glucose (74-99) mg/dL POC Glucose (mg/dL) 160 H 199 H (75-99) mg/dL Calcium (8.4-10.2) mg/dL Magnesium (1.6-2.3) mg/dL 12/21/16 12/21/16 12/21/16 Range/Units 06:12 06:12 06:40 RBC (4.30-5.90) m/uL Hgb (13.0-17.5) gm/dL Hct (39.0-53.0) % MCV (80.0-100.0) fL MCH (25.0-35.0) pg MCHC (31.0-37.0) g/dL Lymphocytes # (1.0-4.8) k/uL PT 21.1 H (9.0-12.0) sec Sodium 147 H (137-145) mmol/L Potassium 3.0 L* (3.5-5.1) mmol/L Carbon Dioxide 32 H (22-30) mmol/L BUN 29 H (9-20) mg/dL Creatinine 1.31 H (0.66-1.25) mg/dL Glucose 143 H (74-99) mg/dL POC Glucose (mg/dL) 151 H (75-99) mg/dL Calcium 7.9 L (8.4-10.2) mg/dL Magnesium 1.4 L (1.6-2.3) mg/dL 12/21/16 Range/Units 11:20 RBC (4.30-5.90) m/uL Hgb (13.0-17.5) gm/dL Hct (39.0-53.0) % MCV (80.0-100.0) fL MCH (25.0-35.0) pg MCHC (31.0-37.0) g/dL Lymphocytes # (1.0-4.8) k/uL PT (9.0-12.0) sec Sodium (137-145) mmol/L Potassium (3.5-5.1) mmol/L Carbon Dioxide (22-30) mmol/L BUN (9-20) mg/dL Creatinine (0.66-1.25) mg/dL Glucose (74-99) mg/dL POC Glucose (mg/dL) 165 H (75-99) mg/dL Calcium (8.4-10.2) mg/dL Magnesium (1.6-2.3) mg/dL Microbiology - Last 24 Hours (Table) 12/20/16 02:30 Blood Culture - Preliminary Blood No Growth after 24 hours Assessment and Plan Plan: Assessment and plan #1 non-ST elevated OH #2 pulmonary infection, on IV antibiotics #3 anemia #4 paroxysmal atrial fibrillation, anticoagulated on warfarin #5 hypertension From cardiology perspective, we will stop Lasix drip and start the patient on Lasix 40 mg IV push every 8 hours. Replace potassium. Continue to monitor renal function, electrolytes and CBC. Continue to follow the patient for further recommendations accordingly. [employer] note has been reviewed, I agree with a documented findings and plan of care. Patient was seen and examined.
[2016-12-21] MEDS: MAGNESIUM SULFATE-D5W PMX 1 GM in DEXTROSE/WATER 1 100ML.BAG IVPB SCH ×3 (14:28→17:54)
[2016-12-21] MEDS: FUROSEMIDE 10 MG/ML 4 ML VIAL IV SCH (16:38)
[2016-12-21 17:00] LABS: Glucose,Whole Blood 170 mg/dL (75-99)
--- NOTE | 2016-12-21 17:28 | P.PN ---
Subjective 86-year-old male patient who is currently experiencing shortness of breath and he has developed diffuse breath and pulmonary infiltrates consistent with acute pulmonary edema with possible superimposed pneumonia. For this reason a pulmonary cath patient was requested. The patient is known to have diabetes and hypertension and chronic atrial fibrillation. The patient presented to the hospital because of increased cough and chest discomfort and he had ST segment changes in the inferolateral leads and he ruled in for myocardial infarction. At that point, the patient was started on IV heparin, cardiology consultation was requested and the patient declined to undergo any cardiac interventions/ catheterization. During his hospital stay, the patient became progressively more short of breath and I reviewed a series of chest x-rays was done since his admission and the patient developed diffuse but the pulmonary infiltrates, that are consistent with acute pulmonary edema and based on that he was started on a Lasix drip for diuresis. Note that his echocardiogram showed impaired LV function with an ejection fraction of 35% and the patient had mild concentric left hypertrophy, mild pulmonary hypertension, no other valvular disruption. Another concern is that the patient is having a superimposed pneumonia in addition to pulmonary edema. The patient is coughing out thick yellowish sputum yet he is afebrile and he denies having any pleurisy. His white count was elevated at time of admission at 18 and the permanent blood cultures showing gram-positive cocci and clusters. He did spike one temperature of 100.5 around midnight. Currently is on IV Zosyn. Note that the patient had a recent stroke approximately 3 months ago and he suffers from left-sided weakness. Nevertheless, he denies having any difficulties with swallowing food or any aspiration. On 12/21/2016, the patient is less short of breath. He denies having any other complaints other than some minimal congested cough. No fever. No chills. The patient is still being diuresis with IV Lasix and the patient has producing adequate amount of urine output. The fluid balance is negative for at least 3.4 L over the past 24 hours. Meanwhile, the blood work has shown a component of hyperchloremic hypernatremia and the sodium level is up to 147 and the patient has dropped his potassium down to 3.0 related to liver is diuresis. His creatinine is at 1.3 for now. Meanwhile, the patient's blood culture came back coagulase-negative staph which is probably a contaminant. No other complaints otherwise. The patient was taken off IV Zosyn and was placed on oral Augmentin. No follow-up chest x-ray from today. He is also being a to go with warfarin regarding approximately atrial fibrillation and his most recent INR is at 2.2. Objective - Vital Signs Vital signs: Vital Signs Temp 97.5 F L 12/21/16 16:00 Pulse 92 12/21/16 16:25 Resp 16 12/21/16 16:00 BP 115/61 12/21/16 16:00 Pulse Ox 92 L 12/21/16 16:00 Intake & Output 12/20/16 12/21/16 12/21/16 18:59 06:59 18:59 Intake Total 531.167 880 Output Total 1800 2150 1400 Balance -1268.833 -2150 -520 Weight 88.5 kg Intake: IV 120 0.9 120 Intake, IV Titration 291.167 400 Amount Furosemide 250 mg In 291.167 Sodium Chloride 0.9% 225 ml @ 10 MG/HR 10 mls/hr IVP .Q24H [facility] Rx#: [id number] Magnesium Sulfate-D5w Pmx 300 1 gm In Dextrose/Water 1 100ml.bag @ 100 mls/hr IVPB Q1H [facility] Rx#: [id number] Piperacillin-Tazobactam 3 100 .375 gm In Dextrose/Water 1 50ml.bag @ 12.5 mls/hr IVPB Q8HR [facility] Rx#: [id number] Oral 240 360 Output: Urine 1800 2150 1400 Uretheral (Field) 1400 Other: Voiding Method Indwelling Catheter Indwelling Catheter Indwelling Catheter # Voids 1 2 - Exam Head exam was generally normal. There was no scleral icterus or corneal arcus. Mucous membranes were moist.Neck was supple and without jugular venous distension, thyromegaly, or carotid bruits. Carotids were easily palpable bilaterally. There was no adenopathy. Lung sounds are diminished bilaterally along with some few crackles in the mid and lower lung rios. Heart sounds are regular, positive S1-S2 and there is no significant murmurs appreciated.Abdominal exam revealed normal bowel sounds. The abdomen was soft, non-tender, and without masses, organomegaly, or appreciable enlargement of the abdominal aorta.Examination of the extremities revealed easily palpable radial, femoral and pedal pulses. There was no cyanosis, clubbing or edema. - Labs CBC & Chem 7: 12/21/16 06:12 12/21/16 06:12 Labs: Abnormal Lab Results - Last 24 Hours (Table) 12/20/16 12/21/16 12/21/16 Range/Units 20:55 06:12 06:12 RBC 3.13 L (4.30-5.90) m/uL Hgb 7.5 L (13.0-17.5) gm/dL Hct 24.5 L (39.0-53.0) % MCV 78.4 L (80.0-100.0) fL MCH 24.0 L (25.0-35.0) pg MCHC 30.6 L (31.0-37.0) g/dL Lymphocytes # 0.4 L (1.0-4.8) k/uL PT 21.1 H (9.0-12.0) sec Sodium (137-145) mmol/L Potassium (3.5-5.1) mmol/L Carbon Dioxide (22-30) mmol/L BUN (9-20) mg/dL Creatinine (0.66-1.25) mg/dL Glucose (74-99) mg/dL POC Glucose (mg/dL) 199 H (75-99) mg/dL Calcium (8.4-10.2) mg/dL Magnesium (1.6-2.3) mg/dL 12/21/16 12/21/16 12/21/16 Range/Units 06:12 06:40 11:20 RBC (4.30-5.90) m/uL Hgb (13.0-17.5) gm/dL Hct (39.0-53.0) % MCV (80.0-100.0) fL MCH (25.0-35.0) pg MCHC (31.0-37.0) g/dL Lymphocytes # (1.0-4.8) k/uL PT (9.0-12.0) sec Sodium 147 H (137-145) mmol/L Potassium 3.0 L* (3.5-5.1) mmol/L Carbon Dioxide 32 H (22-30) mmol/L BUN 29 H (9-20) mg/dL Creatinine 1.31 H (0.66-1.25) mg/dL Glucose 143 H (74-99) mg/dL POC Glucose (mg/dL) 151 H 165 H (75-99) mg/dL Calcium 7.9 L (8.4-10.2) mg/dL Magnesium 1.4 L (1.6-2.3) mg/dL 12/21/16 Range/Units 16:51 RBC (4.30-5.90) m/uL Hgb (13.0-17.5) gm/dL Hct (39.0-53.0) % MCV (80.0-100.0) fL MCH (25.0-35.0) pg MCHC (31.0-37.0) g/dL Lymphocytes # (1.0-4.8) k/uL PT (9.0-12.0) sec Sodium (137-145) mmol/L Potassium (3.5-5.1) mmol/L Carbon Dioxide (22-30) mmol/L BUN (9-20) mg/dL Creatinine (0.66-1.25) mg/dL Glucose (74-99) mg/dL POC Glucose (mg/dL) 170 H (75-99) mg/dL Calcium (8.4-10.2) mg/dL Magnesium (1.6-2.3) mg/dL Microbiology - Last 24 Hours (Table) 12/20/16 02:30 Blood Culture - Preliminary Blood No Growth after 24 hours Assessment and Plan Plan: Assessment 1 acute inferolateral wall myocardial infarction, currently free of any chest pain 2 CHF with impaired LV function with ejection fraction of 35% 3 acute pulmonary edema. Superimposed pneumonia is also considered. Patient is currently on Lasix drip. The patient is on Zosyn. On 12/21/2016, the patient is less short of breath. He has diuresed adequately with IV Lasix and the patient remains in a negative fluid balance of at least 3 L. He has developed some hyperchloremic hypernatremia. Electrolytes show a component of hypokalemia related to diuresis. The patient was switched from IV Zosyn to oral Augmentin. He is obvious in the short of breath. 4 gram-positive cocci in the blood, and clusters, likely coagulase-negative staph or a contaminant 5 chronic anemia 6 CVA with residual left-sided weakness 7 hypertension 8 hyperlipidemia Plan The chest x-ray in the morning. May need to cut down on his diuretics pressure with the developing prerenal picture and hypernatremia. Agree on switching this patient to oral Augmentin. We'll continue to follow along with the rest of the medical team. Replace potassium. Replace magnesium.
--- NOTE | 2016-12-21 18:23 | PN ---
DATE OF SERVICE: 12/21/2016 PRESENTING COMPLAINT: Short of breath. INTERVAL HISTORY: This patient presented with acute ST elevation myocardial infarction. Acute pulmonary edema. Patient is a bit tired. Did sit up briefly. Has been on the Lasix drip earlier. Patient has diuresed about 3 liters. Did tolerate some diet. FAMILY: At the bedside. Review of systems done for constitutional, cardiovascular, GI, pulmonary; relevant findings as above. Current medications are reviewed that include IV Zosyn, switched over to bolus IV Lasix. On examination, temperature 97.5, pulse 89, respiratory rate 16, blood pressure 111/61, pulse ox 92% on room air. GENERAL APPEARANCE: Lying in bed, tired. EYES: Pupils equal, conjunctivae normal. NECK: JVD raised, Mass not palpable. RESPIRATORY: Effort increased. Lungs diminished breath sounds. CARDIOVASCULAR: First and second sounds normal. No edema. ABDOMEN: Soft, nontender. Liver and spleen not palpable. PSYCHIATRY: Alert and oriented x3. Mood and affect normal. INVESTIGATIONS: White count 8.4, hemoglobin 7.5, potassium 3, BUN 29, creatinine 1.31, sodium 147. ASSESSMENT: 1. Acute non-ST elevation myocardial infarction and affecting inferolateral valve causing acute flash pulmonary edema on presentation. 2. Pneumonia; suspect gram-negative organism, present on admission on IV Zosyn. 3. Acute chronic obstructive pulmonary disease exacerbation in an ex-smoker with clinical improvement. 4. Primary osteoarthritis in multiple joints, bilateral. 5. Paroxysmal atrial fibrillation, chronically on Coumadin. 6. Acute respiratory failure, hypoxic from flash pulmonary edema present at admission, congestive heart failure; ejection fraction 30% to 35%. 7. CODE STATUS: DNR. Patient's daughter and the family at the bedside. Questioning and want to talk about cardiac catheterization. I told them to direct discuss with Dr. Sánchez the core driller helper on the case and did tell them that the patient's wishes are respected about no cardiac catheterization when he initially came in. The patient will be switched over to oral Augmentin.
[2016-12-21 21:09] LABS: Glucose,Whole Blood 190 mg/dL (75-99)
[2016-12-21] MEDS: AMOXIC-POT CLAV 875-125MG 1 EACH TAB PO SCH (21:48)
[2016-12-21] MEDS: MELATONIN 3 MG TABLET PO SCH (21:48)
[2016-12-21] MEDS: ATORVASTATIN 40 MG TAB PO SCH (21:48)
[2016-12-22] MEDS: FUROSEMIDE 10 MG/ML 4 ML VIAL IV SCH ×4 (01:14→15:37)
[2016-12-22] MEDS: ACETAMINOPHEN TAB 325 MG TAB PO PRN (02:37)
[2016-12-22] MEDS: IPRATROPIUM-ALBUTEROL 3 ML NEB INHALATION PRN (03:19)
[2016-12-22 03:48] LABS: Glucose,Whole Blood 298 mg/dL (75-99)
[2016-12-22 03:55] LABS: Basophils % (A) 0 %; CH 24.6; CHCM 31.4; Eosinophils # (A) 0.1 k/uL (0-0.7); Eosinophils % (A) 1 %; HDW 3.57; HGB 7.9 gm/dL (13.0-17.5); Hypochromasia Moderate; Luc # (Auto) 0.24; Luc % (Auto) 3; Lymphocytes # (A) 0.4 k/uL (1.0-4.8); Lymphocytes % (A) 4 %; MCHC 30.5 g/dL (31.0-37.0); MCV 78.6 fL (80.0-100.0); Mean Platelet Volume 8.8; Monocytes # (A) 0.7 k/uL (0-1.0); Monocytes % (A) 7 %; Neutrophils # (A) 8.5 k/uL (1.3-7.7); Neutrophils % (A) 86 %; Poikilocytosis Slight; RBC 3.31 m/uL (4.30-5.90); RDW 15.2 % (11.5-15.5); WBC 9.9 k/uL (3.8-10.6); WBC (Perox) 10.76
--- NOTE | 2016-12-22 04:32 | XR ---
EXAM: XR Chest, 1 View. CLINICAL HISTORY: Reason: SOB TECHNIQUE: Frontal view of the chest. COMPARISON: 12/20/16 and 12/19/16 AP portable radiographs. FINDINGS: Lungs: Pulmonary edema-like pattern with heterogeneous bilateral infiltrates, right greater than left, persists without significant change. Pleural spaces: No large pleural effusion is seen on this AP portable exam. No evidence of pneumothorax. Heart: Enlargement of the cardiopericardial silhouette suggesting cardiomegaly is stable. Mediastinum: Unremarkable. Bones: Bones are stable including multilevel degenerative changes. IMPRESSION: No significant change in bilateral airspace opacities that may be on the basis of mildly asymmetric CHF or multifocal pneumonia.
[2016-12-22 05:01] LABS: Anion Gap 13 mmol/L; Blood Urea Nitrogen 37 mg/dL (9-20); Calcium 8.1 mg/dL (8.4-10.2); Carbon Dioxide 27 mmol/L (22-30); Chloride 100 mmol/L (98-107); Glucose 275 mg/dL (74-99); Magnesium 1.9 mg/dL (1.6-2.3); Non-African American GFR(MDRD) 52 (>60 ml/min/1.73 sqM); Potassium 3.4 mmol/L (3.5-5.1); Sodium 140 mmol/L (137-145)
[2016-12-22 06:04] LABS: Glucose,Whole Blood 232 mg/dL (75-99)
[2016-12-22] MEDS: IPRATROPIUM-ALBUTEROL 3 ML NEB INHALATION SCH ×4 (07:56→20:52)
--- NOTE | 2016-12-22 08:24 | PN ---
Mr. Noble is an 86-year-old male who presented with symptoms of dyspnea, was found to have evidence of non-ST segment elevation myocardial infarction as well as evidence of pulmonary congestion. He is feeling better today. There is a possibility of pneumonia. He denies any chest pain. He continued to be in sinus mechanism. He has history of paroxysmal atrial fibrillation. He denies any dizziness, palpitation. He denies any nausea. On the monitor, he continues to be in sinus without any further episode of atrial fibrillation. He continues to be on aspirin once a day, Lipitor 40 mg daily, Lasix 40 mg IV q.8 hours, isosorbide mononitrate 30 mg daily, Lisinopril 5 mg twice a day, metoprolol tartrate 25 mg twice a day and metformin. PHYSICAL EXAMINATION: Blood pressure 140/70 with a heart rate in the 80s. LUNGS: No wheezes appreciated. HEART: Regular rate and rhythm. S1, S2, no S3, with systolic murmur. ABDOMEN: Soft, nontender. EXTREMITIES: 1+ edema. Lab data revealed a BUN and creatinine 37 and 1.3. Potassium 3.4. Hemoglobin of 7.9. IMPRESSION: 1. Status post non-ST segment elevation myocardial infarction. 2. Congestive heart failure with ischemic cardiomyopathy. 3. Probable pneumonia. 4. Renal failure. 5. Anemia. 6. Paroxysmal atrial fibrillation. RECOMMENDATION: I will optimize his medical therapy. Patient has elected not to pursue any aggressive work-up on the admission and he poses a high risk for an acute intervention in view of his overall status. I will increase the dose of his beta john. Continue IV diuretic for another 24 hours, follow his hemoglobin and depending on his progress, further recommendation will be made.
[2016-12-22] MEDS: AMOXIC-POT CLAV 875-125MG 1 EACH TAB PO SCH (08:52)
[2016-12-22] MEDS: PANTOPRAZOLE 40 MG TABLET PO SCH (08:52)
[2016-12-22] MEDS: metFORMIN 500 MG TAB PO SCH ×2 (08:52→21:34)
[2016-12-22] MEDS: LISINOPRIL 5 MG TAB PO SCH ×2 (08:52→21:34)
[2016-12-22] MEDS: METOPROLOL TARTRATE 25 MG TAB PO SCH ×3 (08:52→21:34)
[2016-12-22] MEDS: ISOSORBIDE MONONITRATE ER 30 MG TAB.ER.24H PO SCH (08:52)
[2016-12-22] MEDS: ASPIRIN 81 MG CHEW PO SCH (08:53)
[2016-12-22] MEDS: POTASSIUM CHLORIDE ER 20 MEQ TAB.ER PO SCH ×3 (08:53→21:35)
[2016-12-22] MEDS: SERTRALINE 50 MG TAB PO SCH (08:53)
[2016-12-22 12:24] LABS: Glucose,Whole Blood 211 mg/dL (75-99)
--- NOTE | 2016-12-22 15:22 | CT ---
EXAMINATION TYPE: CT chest wo con DATE OF EXAM: 12/22/2016 2:13 PM COMPARISON: NONE HISTORY: SOB, pain CT DLP: [address] of the chest was performed with lung and mediastinal window settings submitted. The la ck of contrast limits evaluation of the vascular, mediastinal and parenchymal structures including th e upper abdomen. LUNGS: Scattered airspace infiltrates are seen throughout both lung rios is within the upper lobes. Bilateral pleural effusions noted with AP measurement on the right of 5.4 cm and on the left 4.0 cm. Basilar compressive atelectasis appreciated. MEDIASTINUM/JOSE LUIS: Thoracic aorta is of normal caliber with limited evaluation given lack of contrast . The heart is mildly enlarged. No evidence for mediastinal mass. No lymph nodes greater than 1cm . UPPER ABDOMEN: No significant abnormality is seen. OTHER: No significant other abnormality. IMPRESSION: 1. Nonspecific. Diffuse airspace infiltrates with basilar pleural effusions and atelectasis. Correla te for pneumonia. Infiltrates of other etiology not excluded. Appropriate radiographic follow-up is a dvised.
[2016-12-22 17:10] LABS: Glucose,Whole Blood 180 mg/dL (75-99)
--- NOTE | 2016-12-22 17:15 | P.PN ---
Subjective 86-year-old male patient who is currently experiencing shortness of breath and he has developed diffuse breath and pulmonary infiltrates consistent with acute pulmonary edema with possible superimposed pneumonia. For this reason a pulmonary cath patient was requested. The patient is known to have diabetes and hypertension and chronic atrial fibrillation. The patient presented to the hospital because of increased cough and chest discomfort and he had ST segment changes in the inferolateral leads and he ruled in for myocardial infarction. At that point, the patient was started on IV heparin, cardiology consultation was requested and the patient declined to undergo any cardiac interventions/ catheterization. During his hospital stay, the patient became progressively more short of breath and I reviewed a series of chest x-rays was done since his admission and the patient developed diffuse but the pulmonary infiltrates, that are consistent with acute pulmonary edema and based on that he was started on a Lasix drip for diuresis. Note that his echocardiogram showed impaired LV function with an ejection fraction of 35% and the patient had mild concentric left hypertrophy, mild pulmonary hypertension, no other valvular disruption. Another concern is that the patient is having a superimposed pneumonia in addition to pulmonary edema. The patient is coughing out thick yellowish sputum yet he is afebrile and he denies having any pleurisy. His white count was elevated at time of admission at 18 and the permanent blood cultures showing gram-positive cocci and clusters. He did spike one temperature of 100.5 around midnight. Currently is on IV Zosyn. Note that the patient had a recent stroke approximately 3 months ago and he suffers from left-sided weakness. Nevertheless, he denies having any difficulties with swallowing food or any aspiration. On 12/21/2016, the patient is less short of breath. He denies having any other complaints other than some minimal congested cough. No fever. No chills. The patient is still being diuresis with IV Lasix and the patient has producing adequate amount of urine output. The fluid balance is negative for at least 3.4 L over the past 24 hours. Meanwhile, the blood work has shown a component of hyperchloremic hypernatremia and the sodium level is up to 147 and the patient has dropped his potassium down to 3.0 related to liver is diuresis. His creatinine is at 1.3 for now. Meanwhile, the patient's blood culture came back coagulase-negative staph which is probably a contaminant. No other complaints otherwise. The patient was taken off IV Zosyn and was placed on oral Augmentin. No follow-up chest x-ray from today. He is also being a to go with warfarin regarding approximately atrial fibrillation and his most recent INR is at 2.2. On 12/22/2016 the patient is being seen in follow-up. He continues to BE short of breath. He is still producing yellowish sputum and there is a concern of bilateral pneumonia rather than pulmonary edema going to the patient has not responded adequately to diuresis. Note that his initial presentation was consistent with an acute myocardial infarction and he has underlying congestion heart failure. The patient declined cardiac catheterization. He was diuresed adequately and the chest x-ray from today shows no interval change in the bilateral airspace disease that may be on the basis of either CHF or pneumonia. Based on this, a CAT scan of the chest will be ordered. Objective - Vital Signs Vital signs: Vital Signs Temp 98.1 F 12/22/16 16:00 Pulse 76 12/22/16 16:00 Resp 20 12/22/16 16:00 BP 163/57 12/22/16 16:00 Pulse Ox 99 12/22/16 16:00 Intake & Output 12/21/16 12/22/16 12/22/16 18:59 06:59 18:59 Intake Total 1060 630 Output Total 1400 1300 1050 Balance -340 -1300 -420 Weight 89.5 kg Intake: IV 120 160 0.9 120 160 Intake, IV Titration 400 50 Amount Magnesium Sulfate-D5w Pmx 300 1 gm In Dextrose/Water 1 100ml.bag @ 100 mls/hr IVPB Q1H [facility] Rx#: [id number] Piperacillin-Tazobactam 3 100 50 .375 gm In Dextrose/Water 1 50ml.bag @ 12.5 mls/hr IVPB Q8HR [facility] Rx#: [id number] Oral 540 420 Output: Urine 1400 1300 1050 Uretheral (Field) 1400 400 650 Other: Voiding Method Indwelling Catheter Indwelling Catheter Indwelling Catheter # Voids 2 # Bowel Movements 1 - Exam Head exam was generally normal. There was no scleral icterus or corneal arcus. Mucous membranes were moist.Neck was supple and without jugular venous distension, thyromegaly, or carotid bruits. Carotids were easily palpable bilaterally. There was no adenopathy. Lung sounds are diminished bilaterally along with some few crackles in the mid and lower lung rios. Heart sounds are regular, positive S1-S2 and there is no significant murmurs appreciated.Abdominal exam revealed normal bowel sounds. The abdomen was soft, non-tender, and without masses, organomegaly, or appreciable enlargement of the abdominal aorta.Examination of the extremities revealed easily palpable radial, femoral and pedal pulses. There was no cyanosis, clubbing or edema. - Labs CBC & Chem 7: 12/22/16 03:41 12/22/16 03:41 Labs: Abnormal Lab Results - Last 24 Hours (Table) 12/21/16 12/22/16 12/22/16 Range/Units 21:05 03:21 03:41 RBC 3.31 L (4.30-5.90) m/uL Hgb 7.9 L (13.0-17.5) gm/dL Hct 26.0 L (39.0-53.0) % MCV 78.6 L (80.0-100.0) fL MCH 24.0 L (25.0-35.0) pg MCHC 30.5 L (31.0-37.0) g/dL Neutrophils # 8.5 H (1.3-7.7) k/uL Lymphocytes # 0.4 L (1.0-4.8) k/uL Potassium (3.5-5.1) mmol/L BUN (9-20) mg/dL Creatinine (0.66-1.25) mg/dL Glucose (74-99) mg/dL POC Glucose (mg/dL) 190 H 298 H (75-99) mg/dL Calcium (8.4-10.2) mg/dL 12/22/16 12/22/16 12/22/16 Range/Units 03:41 06:03 12:08 RBC (4.30-5.90) m/uL Hgb (13.0-17.5) gm/dL Hct (39.0-53.0) % MCV (80.0-100.0) fL MCH (25.0-35.0) pg MCHC (31.0-37.0) g/dL Neutrophils # (1.3-7.7) k/uL Lymphocytes # (1.0-4.8) k/uL Potassium 3.4 L (3.5-5.1) mmol/L BUN 37 H (9-20) mg/dL Creatinine 1.30 H (0.66-1.25) mg/dL Glucose 275 H (74-99) mg/dL POC Glucose (mg/dL) 232 H 211 H (75-99) mg/dL Calcium 8.1 L (8.4-10.2) mg/dL 12/22/16 Range/Units 17:02 RBC (4.30-5.90) m/uL Hgb (13.0-17.5) gm/dL Hct (39.0-53.0) % MCV (80.0-100.0) fL MCH (25.0-35.0) pg MCHC (31.0-37.0) g/dL Neutrophils # (1.3-7.7) k/uL Lymphocytes # (1.0-4.8) k/uL Potassium (3.5-5.1) mmol/L BUN (9-20) mg/dL Creatinine (0.66-1.25) mg/dL Glucose (74-99) mg/dL POC Glucose (mg/dL) 180 H (75-99) mg/dL Calcium (8.4-10.2) mg/dL Microbiology - Last 24 Hours (Table) 12/20/16 02:30 Blood Culture - Preliminary Blood No Growth after 48 hours Assessment and Plan Plan: Assessment 1 acute inferolateral wall myocardial infarction, currently free of any chest pain 2 CHF with impaired LV function with ejection fraction of 35% 3 diffuse bilateral pulmonary infiltrates, rule out pulmonary edema in the setting of an acute myocardial infarction special that the patient is an underlying cardiomyopathy with an ejection fraction of 35%. Nevertheless the patient has not responded adequately to diuresis. Superimposed pneumonia is also considered. The patient was receiving Lasix drips and he was switched to IV Lasix 40 mg every 8 hours. The patient is also on antibiotics. He was initially on IV Zosyn and he was switched to Augmentin by medical team. Meanwhile, today chest x-ray still showing bilateral airspace disease and further investigation will be needed. 4 gram-positive cocci in the blood, and clusters, likely coagulase-negative staph or a contaminant, staph epidermidis 5 chronic anemia, hemoglobin stable at 7.9 6 CVA with residual left-sided weakness 7 hypertension 8 hyperlipidemia 9 hyponatremia, improved Plan Proceed with a CAT scan of the chest to further characterize the bilateral pulmonary infiltrates. Pneumonia suspected rather than pulmonary edema. Based on the CAT scan findings will make further adjustments. I'm inclined to broaden this patient antibiotic coverage for now until further information is available on the CAT scan of the chest. Meanwhile, we will attempt to obtain a sputum Gram stain and culture to establish microbial diagnosis.
[2016-12-22] MEDS ORDERED: WARFARIN 5 MG TAB PO ONE (18:00)
[2016-12-22] MEDS: PIPERACILLIN-TAZOBACTAM 3.375 GM in DEXTROSE/WATER 1 50ML.BAG IVPB SCH (18:06)
[2016-12-22 20:59] LABS: Glucose,Whole Blood 195 mg/dL (75-99)
[2016-12-22] MEDS: ATORVASTATIN 40 MG TAB PO SCH (21:34)
[2016-12-22] MEDS: MELATONIN 3 MG TABLET PO SCH (21:34)
[2016-12-23] MEDS: PIPERACILLIN-TAZOBACTAM 3.375 GM in DEXTROSE/WATER 1 50ML.BAG IVPB SCH ×4 (00:17→23:03)
[2016-12-23] MEDS: FUROSEMIDE 10 MG/ML 4 ML VIAL IV SCH ×4 (00:17→23:02)
[2016-12-23 06:35] LABS: Glucose,Whole Blood 163 mg/dL (75-99)
[2016-12-23 06:48] LABS: INR 1.4 (<1.1); Prothrombin Time 13.6 sec (9.0-12.0)
[2016-12-23 06:50] LABS: Basophils # (A) 0.1 k/uL (0-0.2); Basophils % (A) 1 %; CH 24.2; CHCM 30.1; Eosinophils # (A) 0.1 k/uL (0-0.7); Eosinophils % (A) 1 %; HCT 27.8 % (39.0-53.0); HDW 3.76; HGB 8.4 gm/dL (13.0-17.5); Hypochromasia Marked; Luc # (Auto) 0.42; Luc % (Auto) 5; Lymphocytes # (A) 0.9 k/uL (1.0-4.8); Lymphocytes % (A) 10 %; MCH 24.5 pg (25.0-35.0); MCHC 30.4 g/dL (31.0-37.0); MCV 80.6 fL (80.0-100.0); Mean Platelet Volume 6.6; Monocytes # (A) 0.8 k/uL (0-1.0); Monocytes % (A) 9 %; Neutrophils # (A) 7.2 k/uL (1.3-7.7); Neutrophils % (A) 76 %; Poikilocytosis Slight; RBC 3.45 m/uL (4.30-5.90); RDW 14.9 % (11.5-15.5); WBC 9.5 k/uL (3.8-10.6)
[2016-12-23 06:58] LABS: Calcium 8.4 mg/dL (8.4-10.2); Potassium 4.2 mmol/L (3.5-5.1)
[2016-12-23] MEDS: ASPIRIN 81 MG CHEW PO SCH (07:50)
[2016-12-23] MEDS: PANTOPRAZOLE 40 MG TABLET PO SCH (07:50)
[2016-12-23] MEDS: ISOSORBIDE MONONITRATE ER 30 MG TAB.ER.24H PO SCH (07:50)
[2016-12-23] MEDS: LISINOPRIL 5 MG TAB PO SCH ×2 (07:50→19:50)
[2016-12-23] MEDS: METOPROLOL TARTRATE 25 MG TAB PO SCH ×3 (07:50→19:50)
[2016-12-23] MEDS: SERTRALINE 50 MG TAB PO SCH (07:50)
[2016-12-23] MEDS: metFORMIN 500 MG TAB PO SCH ×2 (07:50→19:50)
[2016-12-23] MEDS: POTASSIUM CHLORIDE ER 20 MEQ TAB.ER PO SCH ×3 (07:50→19:51)
[2016-12-23] MEDS: IPRATROPIUM-ALBUTEROL 3 ML NEB INHALATION SCH ×4 (09:17→20:11)
--- NOTE | 2016-12-23 09:53 | PN ---
DATE OF SERVICE: 12/22/2016 PRESENTING COMPLAINT: Short of breath. INTERVAL HISTORY: This is a patient who presented with acute ST elevation myocardial infarction, had pulmonary edema and also had pneumonia and COPD exacerbation. The patient is hypoxic this morning. Did undergo a CT scan. Bringing up brown sputum. Tired. Has not really been out of bed. REVIEW OF SYSTEMS: Done for constitutional, cardiovascular, GI, pulmonary; relevant findings as above. Current medications include: 1. DuoNeb. 2. Aspirin. 3. IV Lasix. 4. Zosyn has been put back. On examination, temperature 97, pulse 74, respirations 18, blood pressure 105/59, pulse ox 98% on 3 liters. GENERAL APPEARANCE: Lying in bed, tired appearing. EYES: Pupils equal. Conjunctivae normal. NECK: JVD unable to assess. RESPIRATORY: Effort increased. LUNGS: Diminished breath sounds. Some crackles. CARDIOVASCULAR: First and second sounds normal. No edema. ABDOMEN: Soft, nontender. Liver and spleen not palpable. PSYCHIATRIC: Awake, answering questions. Mood and affect low. INVESTIGATIONS: White count 9.9, hemoglobin 7.9. Potassium 3.0, BUN 37, creatinine 1.30. Accu-Cheks are noted. CT scan of the chest shows infiltrates and effusion. ASSESSMENT: 1. Acute non-ST elevation myocardial infarction affecting the inferolateral wall, causing acute flash pulmonary edema on presentation. 2. Pneumonia; suspect gram-negative organism, present on admission, slow to respond. 3. Acute chronic obstructive pulmonary disease exacerbation in an ex-smoker. 4. Primary osteoarthritis multiple joints, bilateral. 5. Paroxysmal atrial fibrillation, chronically on Coumadin. 6. Acute respiratory failure, hypoxic, from flash pulmonary edema. 7. Congestive heart failure; ejection fraction 30% to 35%. 8. CODE STATUS DNR. PLAN: Patient is definitely slow to respond. The patient will be put back on IV Zosyn. Sputum to be sent out for gram stain and culture. Spoke to the nurse who will get the patient up in a chair.
[2016-12-23 11:12] LABS: Glucose,Whole Blood 202 mg/dL (75-99)
[2016-12-23 11:25] VITALS: BMI 27.8
--- NOTE | 2016-12-23 12:54 | P.PN ---
Subjective Principal diagnosis: Non-STEMI Is an 86-year-old gentleman who presented to the hospital on this initially with symptoms of progressive dyspnea, he ruled in for non-Q-wave myocardial infarction. Patient also had evidence of pulmonary congestion and was diuresed with IV Lasix. This morning patient is in atrial fibrillation, has known history of paroxysmal atrial fibrillation. Patient was seen and examined this morning, feeling better overall. Breathing stable. Weight down 1 kg today. INR today 1.4. Hemoglobin 8.4. BUN 48, creatinine 1.4, potassium 4.2. We will give the patient 5 mg of Coumadin today. Continue IV Lasix for 24 hours. Objective - Vital Signs Vital signs: Vital Signs Temp 97.5 F L 12/23/16 08:00 Pulse 80 12/23/16 09:19 Resp 22 12/23/16 08:00 BP 133/71 12/23/16 08:00 Pulse Ox 92 L 12/23/16 09:18 Intake & Output 12/22/16 12/23/16 12/23/16 18:59 06:59 18:59 Intake Total 990 280 Output Total 1050 2501 Balance -60 -2501 280 Weight 88 kg 88 kg Intake: IV 160 0.9 160 Intake, IV Titration 50 Amount Piperacillin-Tazobactam 3 50 .375 gm In Dextrose/Water 1 50ml.bag @ 12.5 mls/hr IVPB Q8HR [facility] Rx#: [id number] Oral 780 280 Output: Urine 1050 2500 Uretheral (Field) 650 750 Stool 1 Other: Voiding Method Indwelling Catheter Indwelling Catheter Indwelling Catheter # Voids 2 - Exam PHYSICAL EXAMINATION: HEENT: Head is atraumatic, normocephalic. Pupils equal, round. Neck is supple. There is no elevated jugular venous pressure. HEART EXAMINATION: Heart S1, S2 normal. No murmur or gallop heard. CHEST EXAMINATION: Lungs reveal fine crackles to bilateral bases with diminished air entry bilaterally. ABDOMEN: Soft, nontender. Bowel sounds are heard. No organomegaly noted. EXTREMITIES: 2+ peripheral pulses with trace evidence of peripheral edema and no calf tenderness noted. NEUROLOGIC patient is awake, alert and oriented -3. . - Labs CBC & Chem 7: 12/23/16 05:46 12/23/16 05:46 Labs: Abnormal Lab Results - Last 24 Hours (Table) 12/22/16 12/22/16 12/23/16 Range/Units 17:02 20:53 05:46 RBC 3.45 L (4.30-5.90) m/uL Hgb 8.4 L (13.0-17.5) gm/dL Hct 27.8 L (39.0-53.0) % MCH 24.5 L (25.0-35.0) pg MCHC 30.4 L (31.0-37.0) g/dL Lymphocytes # 0.9 L (1.0-4.8) k/uL PT (9.0-12.0) sec BUN (9-20) mg/dL Creatinine (0.66-1.25) mg/dL Glucose (74-99) mg/dL POC Glucose (mg/dL) 180 H 195 H (75-99) mg/dL 12/23/16 12/23/16 12/23/16 Range/Units 05:46 05:46 06:14 RBC (4.30-5.90) m/uL Hgb (13.0-17.5) gm/dL Hct (39.0-53.0) % MCH (25.0-35.0) pg MCHC (31.0-37.0) g/dL Lymphocytes # (1.0-4.8) k/uL PT 13.6 H (9.0-12.0) sec BUN 48 H (9-20) mg/dL Creatinine 1.40 H (0.66-1.25) mg/dL Glucose 170 H (74-99) mg/dL POC Glucose (mg/dL) 163 H (75-99) mg/dL 12/23/16 Range/Units 11:10 RBC (4.30-5.90) m/uL Hgb (13.0-17.5) gm/dL Hct (39.0-53.0) % MCH (25.0-35.0) pg MCHC (31.0-37.0) g/dL Lymphocytes # (1.0-4.8) k/uL PT (9.0-12.0) sec BUN (9-20) mg/dL Creatinine (0.66-1.25) mg/dL Glucose (74-99) mg/dL POC Glucose (mg/dL) 202 H (75-99) mg/dL Microbiology - Last 24 Hours (Table) 12/20/16 02:30 Blood Culture - Preliminary Blood No Growth after 72 hours Assessment and Plan (1) Systolic CHF, acute on chronic Status: Acute (2) Ischemic cardiomyopathy Status: Acute (3) Pneumonia Status: Acute (4) Renal failure, acute Status: Acute (5) Paroxysmal a-fib Status: Acute (6) Anemia Status: Acute (7) NSTEMI (non-ST elevated myocardial infarction) Status: Acute Plan: From cardiology's perspective, we will give the patient 5 mg of Coumadin today. Check INR in the morning. Continue IV Lasix for 24 hours. Lytes BUN and creatinine in the morning. DNP note has been reviewed, I agree with a documented findings and plan of care. Patient was seen and examined.
--- NOTE | 2016-12-23 13:03 | P.PN ---
Subjective Principal diagnosis: Acute congestive heart failure secondary to systolic dysfunction possible underlying pneumonia, but felt to be less likely. 86-year-old male patient who is currently experiencing shortness of breath and he has developed diffuse breath and pulmonary infiltrates consistent with acute pulmonary edema with possible superimposed pneumonia. For this reason a pulmonary cath patient was requested. The patient is known to have diabetes and hypertension and chronic atrial fibrillation. The patient presented to the hospital because of increased cough and chest discomfort and he had ST segment changes in the inferolateral leads and he ruled in for myocardial infarction. At that point, the patient was started on IV heparin, cardiology consultation was requested and the patient declined to undergo any cardiac interventions/ catheterization. During his hospital stay, the patient became progressively more short of breath and I reviewed a series of chest x-rays was done since his admission and the patient developed diffuse but the pulmonary infiltrates, that are consistent with acute pulmonary edema and based on that he was started on a Lasix drip for diuresis. Note that his echocardiogram showed impaired LV function with an ejection fraction of 35% and the patient had mild concentric left hypertrophy, mild pulmonary hypertension, no other valvular disruption. Another concern is that the patient is having a superimposed pneumonia in addition to pulmonary edema. The patient is coughing out thick yellowish sputum yet he is afebrile and he denies having any pleurisy. His white count was elevated at time of admission at 18 and the permanent blood cultures showing gram-positive cocci and clusters. He did spike one temperature of 100.5 around midnight. Currently is on IV Zosyn. Note that the patient had a recent stroke approximately 3 months ago and he suffers from left-sided weakness. Nevertheless, he denies having any difficulties with swallowing food or any aspiration. On 12/21/2016, the patient is less short of breath. He denies having any other complaints other than some minimal congested cough. No fever. No chills. The patient is still being diuresis with IV Lasix and the patient has producing adequate amount of urine output. The fluid balance is negative for at least 3.4 L over the past 24 hours. Meanwhile, the blood work has shown a component of hyperchloremic hypernatremia and the sodium level is up to 147 and the patient has dropped his potassium down to 3.0 related to liver is diuresis. His creatinine is at 1.3 for now. Meanwhile, the patient's blood culture came back coagulase-negative staph which is probably a contaminant. No other complaints otherwise. The patient was taken off IV Zosyn and was placed on oral Augmentin. No follow-up chest x-ray from today. He is also being a to go with warfarin regarding approximately atrial fibrillation and his most recent INR is at 2.2. On 12/22/2016 the patient is being seen in follow-up. He continues to BE short of breath. He is still producing yellowish sputum and there is a concern of bilateral pneumonia rather than pulmonary edema going to the patient has not responded adequately to diuresis. Note that his initial presentation was consistent with an acute myocardial infarction and he has underlying congestion heart failure. The patient declined cardiac catheterization. He was diuresed adequately and the chest x-ray from today shows no interval change in the bilateral airspace disease that may be on the basis of either CHF or pneumonia. Based on this, a CAT scan of the chest will be ordered. Reevaluated today on 12/23/2016, continues to have shortness of breath, cough, the cough is productive with yellow phlegm. Cultures on the sputum have been requested. Patient is improving but not significantly in spite of diuretics and antibiotics as well as bronchodilators. His initial presentation was a presentation of acute myocardial infarction. Impaired LV function with EF of 35 percent, abnormal chest x-ray suggestive of pulmonary edema however the possibility of superimposed pneumonia is not entirely ruled out. Objective - Vital Signs Vital signs: Vital Signs Temp 97.5 F L 12/23/16 08:00 Pulse 80 12/23/16 09:19 Resp 22 12/23/16 08:00 BP 133/71 12/23/16 08:00 Pulse Ox 92 L 12/23/16 09:18 Intake & Output 12/22/16 12/23/16 12/23/16 18:59 06:59 18:59 Intake Total 990 280 Output Total 1050 2501 Balance -60 -2501 280 Weight 88 kg 88 kg Intake: IV 160 0.9 160 Intake, IV Titration 50 Amount Piperacillin-Tazobactam 3 50 .375 gm In Dextrose/Water 1 50ml.bag @ 12.5 mls/hr IVPB Q8HR [facility] Rx#: [id number] Oral 780 280 Output: Urine 1050 2500 Uretheral (Field) 650 750 Stool 1 Other: Voiding Method Indwelling Catheter Indwelling Catheter Indwelling Catheter # Voids 2 - Exam Physical Exam: Revealed an 86-year-old white male in no distress. HEENT:[Neck is supple.] [No neck masses.] [No thyromegaly.] [No JVD.] Chest: [Diminished breath sounds bilaterally with crackles at the bases especially at the left base.] Cardiac Exam: [Normal S1 and S2, no S3 gallop, no murmur.] Abdomen: [Soft, nontender, no megaly, no rebound, no guarding, normal bowel sounds.] Extremities: [No clubbing, no edema, no cyanosis.] Neurological Exam: [No focal neurologic deficit.] - Labs CBC & Chem 7: 12/23/16 05:46 12/23/16 05:46 Labs: Abnormal Lab Results - Last 24 Hours (Table) 12/22/16 12/22/16 12/23/16 Range/Units 17:02 20:53 05:46 RBC 3.45 L (4.30-5.90) m/uL Hgb 8.4 L (13.0-17.5) gm/dL Hct 27.8 L (39.0-53.0) % MCH 24.5 L (25.0-35.0) pg MCHC 30.4 L (31.0-37.0) g/dL Lymphocytes # 0.9 L (1.0-4.8) k/uL PT (9.0-12.0) sec BUN (9-20) mg/dL Creatinine (0.66-1.25) mg/dL Glucose (74-99) mg/dL POC Glucose (mg/dL) 180 H 195 H (75-99) mg/dL 12/23/16 12/23/16 12/23/16 Range/Units 05:46 05:46 06:14 RBC (4.30-5.90) m/uL Hgb (13.0-17.5) gm/dL Hct (39.0-53.0) % MCH (25.0-35.0) pg MCHC (31.0-37.0) g/dL Lymphocytes # (1.0-4.8) k/uL PT 13.6 H (9.0-12.0) sec BUN 48 H (9-20) mg/dL Creatinine 1.40 H (0.66-1.25) mg/dL Glucose 170 H (74-99) mg/dL POC Glucose (mg/dL) 163 H (75-99) mg/dL 12/23/16 Range/Units 11:10 RBC (4.30-5.90) m/uL Hgb (13.0-17.5) gm/dL Hct (39.0-53.0) % MCH (25.0-35.0) pg MCHC (31.0-37.0) g/dL Lymphocytes # (1.0-4.8) k/uL PT (9.0-12.0) sec BUN (9-20) mg/dL Creatinine (0.66-1.25) mg/dL Glucose (74-99) mg/dL POC Glucose (mg/dL) 202 H (75-99) mg/dL Microbiology - Last 24 Hours (Table) 12/20/16 02:30 Blood Culture - Preliminary Blood No Growth after 72 hours Assessment and Plan Plan: 1 acute inferolateral wall myocardial infarction, currently free of any chest pain 2 CHF with impaired LV function with ejection fraction of 35% 3 diffuse bilateral pulmonary infiltrates, rule out pulmonary edema in the setting of an acute myocardial infarction special that the patient is an underlying cardiomyopathy with an ejection fraction of 35%. Nevertheless the patient has not responded adequately to diuresis. Superimposed pneumonia is also considered. The patient was receiving Lasix drips and he was switched to IV Lasix 40 mg every 8 hours. The patient is also on antibiotics. He was initially on IV Zosyn and he was switched to Augmentin by medical team. Meanwhile, today chest x-ray still showing bilateral airspace disease and further investigation will be needed. 4 gram-positive cocci in the blood, and clusters, likely coagulase-negative staph or a contaminant, staph epidermidis 5 chronic anemia, hemoglobin stable at 7.9 6 CVA with residual left-sided weakness 7 hypertension 8 hyperlipidemia 9 hyponatremia, improved Recommendation: Reviewed the CT of the chest, suggestive of underlying pneumonia in addition to his pulmonary edema, hence continue antibiotics, continue diuretics, and awaiting sputum cultures that are presently pending. Continue Zosyn for now. Time with Patient: Less than 30
[2016-12-23 15:56] LABS: Glucose,Whole Blood 200 mg/dL (75-99)
[2016-12-23] MEDS ORDERED: WARFARIN 5 MG TAB PO ONE (18:00)
[2016-12-23 19:50] LABS: Glucose,Whole Blood 217 mg/dL (75-99)
[2016-12-23] MEDS: ATORVASTATIN 40 MG TAB PO SCH (19:50)
[2016-12-23] MEDS: MELATONIN 3 MG TABLET PO SCH (19:50)
[2016-12-23 20:55] LABS: Glucose,Whole Blood 202 mg/dL (75-99)
--- NOTE | 2016-12-23 21:37 | PN ---
DATE OF SERVICE: 12/23/2016 PRESENTING COMPLAINT: Short of breath. INTERVAL HISTORY: This is a patient with acute ST elevation myocardial infarction and had pulmonary edema and also pneumonia and COPD exacerbation. The patient rather tired, sitting up in bed, did eat some. Review of systems done for constitutional, cardiovascular, GI, pulmonary; relevant findings as above. Current medications are reviewed and include: IV Zosyn. On examination, temperature 97.5, pulse 82, respiration 18, blood pressure 112/55, pulse ox 99% on 3 liters. GENERAL APPEARANCE: Sitting up. Tired-appearing. EYES: Pupils equal normal. NECK: JVD unable to assess. Mass not palpable. RESPIRATORY: Effort increased. LUNGS: Decreased breath sounds. CARDIOVASCULAR: First and second sounds normal. No edema. ABDOMEN: Soft, nontender. Liver and spleen not palpable. PSYCHIATRY: Awake, answering questions. Mood and affect somewhat low. INVESTIGATIONS: White count 9.5, hemoglobin 8.4. Potassium 4.2. BUN 48, creatinine 1.40. ASSESSMENT: 1. Acute ST elevation myocardial infarction effecting inferolateral wall causing acute flash pulmonary edema present on admission. 2. Pneumonia; suspect gram-negative organism, present on admission. 3. Acute chronic obstructive pulmonary disease exacerbation in an ex-smoker. 4. Primary osteoarthritis of multiple joints, bilateral. 5. Proximal atrial fibrillation, chronically on Coumadin. 6. Acute respiratory failure, hypoxic from flash pulmonary edema. 7. Ischemic cardiomyopathy, ejection fraction 30 to 35%. 8. CODE STATUS: DNR. PLAN: Continue current medication and treatment plan. Overall prognosis is guarded. Patient did walk in the room with a rolling walker. Patient needed assistance to stand up from a chair. The patient will probably need rehab. Follow.
[2016-12-23] MEDS: INSULIN LISPRO (humaLOG) 300 UNIT/3 ML VIAL SQ SCH (22:08)
[2016-12-23 22:32] LABS: Glucose,Whole Blood 198 mg/dL (75-99)
[2016-12-24 06:27] LABS: Glucose,Whole Blood 215 mg/dL (75-99)
[2016-12-24 06:33] LABS: Basophils % (A) 0 %; CH 24.1; CHCM 30.1; Eosinophils # (A) 0.1 k/uL (0-0.7); Eosinophils % (A) 2 %; HCT 26.6 % (39.0-53.0); HDW 3.69; HGB 8.3 gm/dL (13.0-17.5); Hypochromasia Marked; Luc # (Auto) 0.29; Luc % (Auto) 4; Lymphocytes # (A) 0.7 k/uL (1.0-4.8); Lymphocytes % (A) 9 %; MCHC 31.1 g/dL (31.0-37.0); MCV 80.4 fL (80.0-100.0); Mean Platelet Volume 6.7; Monocytes # (A) 0.5 k/uL (0-1.0); Monocytes % (A) 6 %; Neutrophils # (A) 6.3 k/uL (1.3-7.7); Neutrophils % (A) 79 %; Poikilocytosis Slight; RBC 3.31 m/uL (4.30-5.90); WBC 7.9 k/uL (3.8-10.6); WBC (Perox) 8.63
[2016-12-24] MEDS: INSULIN LISPRO (humaLOG) 300 UNIT/3 ML VIAL SQ SCH ×4 (06:45→22:32)
[2016-12-24 06:53] LABS: Anion Gap 10 mmol/L; Blood Urea Nitrogen 44 mg/dL (9-20); Calcium 8.2 mg/dL (8.4-10.2); Carbon Dioxide 28 mmol/L (22-30); Chloride 103 mmol/L (98-107); Glucose 122 mg/dL (74-99); Non-African American GFR(MDRD) 58 (>60 ml/min/1.73 sqM); Sodium 141 mmol/L (137-145)
[2016-12-24] MEDS: IPRATROPIUM-ALBUTEROL 3 ML NEB INHALATION SCH ×4 (07:15→19:15)
[2016-12-24] MEDS: FUROSEMIDE 10 MG/ML 4 ML VIAL IV SCH ×2 (07:47→17:03)
[2016-12-24] MEDS: ISOSORBIDE MONONITRATE ER 30 MG TAB.ER.24H PO SCH (07:48)
[2016-12-24] MEDS: metFORMIN 500 MG TAB PO SCH ×2 (07:48→20:02)
[2016-12-24] MEDS: METOPROLOL TARTRATE 25 MG TAB PO SCH ×3 (07:49→20:02)
[2016-12-24] MEDS: LISINOPRIL 5 MG TAB PO SCH ×2 (07:49→20:03)
[2016-12-24] MEDS: ASPIRIN 81 MG CHEW PO SCH (07:49)
[2016-12-24] MEDS: PANTOPRAZOLE 40 MG TABLET PO SCH (07:49)
[2016-12-24] MEDS: PIPERACILLIN-TAZOBACTAM 3.375 GM in DEXTROSE/WATER 1 50ML.BAG IVPB SCH ×2 (07:49→15:30)
[2016-12-24] MEDS: POTASSIUM CHLORIDE ER 20 MEQ TAB.ER PO SCH ×3 (07:49→20:02)
[2016-12-24] MEDS: SERTRALINE 50 MG TAB PO SCH (07:49)
[2016-12-24 08:59] LABS: INR 2.3 (<1.1); Prothrombin Time 21.7 sec (9.0-12.0)
[2016-12-24 11:28] LABS: Glucose,Whole Blood 168 mg/dL (75-99)
--- NOTE | 2016-12-24 14:01 | P.PN ---
Subjective Principal diagnosis: Acute congestive heart failure secondary to systolic dysfunction possible underlying pneumonia, but felt to be less likely. 86-year-old male patient who is currently experiencing shortness of breath and he has developed diffuse breath and pulmonary infiltrates consistent with acute pulmonary edema with possible superimposed pneumonia. For this reason a pulmonary cath patient was requested. The patient is known to have diabetes and hypertension and chronic atrial fibrillation. The patient presented to the hospital because of increased cough and chest discomfort and he had ST segment changes in the inferolateral leads and he ruled in for myocardial infarction. At that point, the patient was started on IV heparin, cardiology consultation was requested and the patient declined to undergo any cardiac interventions/ catheterization. During his hospital stay, the patient became progressively more short of breath and I reviewed a series of chest x-rays was done since his admission and the patient developed diffuse but the pulmonary infiltrates, that are consistent with acute pulmonary edema and based on that he was started on a Lasix drip for diuresis. Note that his echocardiogram showed impaired LV function with an ejection fraction of 35% and the patient had mild concentric left hypertrophy, mild pulmonary hypertension, no other valvular disruption. Another concern is that the patient is having a superimposed pneumonia in addition to pulmonary edema. The patient is coughing out thick yellowish sputum yet he is afebrile and he denies having any pleurisy. His white count was elevated at time of admission at 18 and the permanent blood cultures showing gram-positive cocci and clusters. He did spike one temperature of 100.5 around midnight. Currently is on IV Zosyn. Note that the patient had a recent stroke approximately 3 months ago and he suffers from left-sided weakness. Nevertheless, he denies having any difficulties with swallowing food or any aspiration. On 12/21/2016, the patient is less short of breath. He denies having any other complaints other than some minimal congested cough. No fever. No chills. The patient is still being diuresis with IV Lasix and the patient has producing adequate amount of urine output. The fluid balance is negative for at least 3.4 L over the past 24 hours. Meanwhile, the blood work has shown a component of hyperchloremic hypernatremia and the sodium level is up to 147 and the patient has dropped his potassium down to 3.0 related to liver is diuresis. His creatinine is at 1.3 for now. Meanwhile, the patient's blood culture came back coagulase-negative staph which is probably a contaminant. No other complaints otherwise. The patient was taken off IV Zosyn and was placed on oral Augmentin. No follow-up chest x-ray from today. He is also being a to go with warfarin regarding approximately atrial fibrillation and his most recent INR is at 2.2. On 12/22/2016 the patient is being seen in follow-up. He continues to BE short of breath. He is still producing yellowish sputum and there is a concern of bilateral pneumonia rather than pulmonary edema going to the patient has not responded adequately to diuresis. Note that his initial presentation was consistent with an acute myocardial infarction and he has underlying congestion heart failure. The patient declined cardiac catheterization. He was diuresed adequately and the chest x-ray from today shows no interval change in the bilateral airspace disease that may be on the basis of either CHF or pneumonia. Based on this, a CAT scan of the chest will be ordered. Reevaluated today on 12/23/2016, continues to have shortness of breath, cough, the cough is productive with yellow phlegm. Cultures on the sputum have been requested. Patient is improving but not significantly in spite of diuretics and antibiotics as well as bronchodilators. His initial presentation was a presentation of acute myocardial infarction. Impaired LV function with EF of 35 percent, abnormal chest x-ray suggestive of pulmonary edema however the possibility of superimposed pneumonia is not entirely ruled out. Reevaluated today on 12/24/2016, patient is feeling better today, breathing easier, blood cultures remain negative, sputum so far is nondiagnostic, WBC count is 7.9 hemoglobin is 8.3 INR is 2.3. Patient is feeling much better compared to baseline. And he is wondering if he could be discharged home. From my perspective I think the patient should be considered for discharge planning today or tomorrow. Objective - Vital Signs Vital signs: Vital Signs Temp 97.0 F L 12/24/16 11:54 Pulse 81 12/24/16 11:54 Resp 16 12/24/16 11:54 BP 105/56 12/24/16 11:54 Pulse Ox 97 12/24/16 11:54 Intake & Output 12/23/16 12/24/16 12/24/16 18:59 06:59 18:59 Intake Total 280 590 360 Output Total 1850 2801 Balance -1570 -2211 360 Weight 88 kg 86 kg Intake: Intake, IV Titration 50 Amount Piperacillin-Tazobactam 3 50 .375 gm In Dextrose/Water 1 50ml.bag @ 12.5 mls/hr IVPB Q8HR [facility] Rx#: [id number] Oral 280 540 360 Output: Urine 1850 2800 Stool 1 Other: Voiding Method Indwelling Catheter Indwelling Catheter Indwelling Catheter # Bowel Movements 1 - Exam Physical Exam: Revealed an 86-year-old white male in no distress. HEENT:[Neck is supple.] [No neck masses.] [No thyromegaly.] [No JVD.] Chest: [Diminished breath sounds bilaterally with crackles at the bases especially at the left base.] Cardiac Exam: [Normal S1 and S2, no S3 gallop, no murmur.] Abdomen: [Soft, nontender, no megaly, no rebound, no guarding, normal bowel sounds.] Extremities: [No clubbing, no edema, no cyanosis.] Neurological Exam: [No focal neurologic deficit.] - Labs CBC & Chem 7: 12/24/16 05:49 12/24/16 05:49 Labs: Abnormal Lab Results - Last 24 Hours (Table) 12/23/16 12/23/16 12/23/16 Range/Units 15:54 19:48 20:53 RBC (4.30-5.90) m/uL Hgb (13.0-17.5) gm/dL Hct (39.0-53.0) % Lymphocytes # (1.0-4.8) k/uL PT (9.0-12.0) sec BUN (9-20) mg/dL Glucose (74-99) mg/dL POC Glucose (mg/dL) 200 H 217 H 202 H (75-99) mg/dL Calcium (8.4-10.2) mg/dL 12/23/16 12/24/16 12/24/16 Range/Units 22:05 05:49 05:49 RBC 3.31 L (4.30-5.90) m/uL Hgb 8.3 L (13.0-17.5) gm/dL Hct 26.6 L (39.0-53.0) % Lymphocytes # 0.7 L (1.0-4.8) k/uL PT (9.0-12.0) sec BUN 44 H (9-20) mg/dL Glucose 122 H (74-99) mg/dL POC Glucose (mg/dL) 198 H (75-99) mg/dL Calcium 8.2 L (8.4-10.2) mg/dL 12/24/16 12/24/16 12/24/16 Range/Units 06:25 08:14 11:16 RBC (4.30-5.90) m/uL Hgb (13.0-17.5) gm/dL Hct (39.0-53.0) % Lymphocytes # (1.0-4.8) k/uL PT 21.7 H (9.0-12.0) sec BUN (9-20) mg/dL Glucose (74-99) mg/dL POC Glucose (mg/dL) 215 H 168 H (75-99) mg/dL Calcium (8.4-10.2) mg/dL Microbiology - Last 24 Hours (Table) 12/22/16 16:27 Gram Stain - Preliminary Sputum Sputum Culture - Preliminary 12/20/16 02:30 Blood Culture - Preliminary Blood No Growth after 96 hours Assessment and Plan Plan: 1 acute inferolateral wall myocardial infarction, currently free of any chest pain 2 CHF with impaired LV function with ejection fraction of 35% 3 diffuse bilateral pulmonary infiltrates, rule out pulmonary edema in the setting of an acute myocardial infarction special that the patient is an underlying cardiomyopathy with an ejection fraction of 35%. Nevertheless the patient has not responded adequately to diuresis. Superimposed pneumonia is also considered. The patient was receiving Lasix drips and he was switched to IV Lasix 40 mg every 8 hours. The patient is also on antibiotics. He was initially on IV Zosyn and he was switched to Augmentin by medical team. Meanwhile, today chest x-ray still showing bilateral airspace disease and further investigation will be needed. 4 gram-positive cocci in the blood, and clusters, likely coagulase-negative staph or a contaminant, staph epidermidis 5 chronic anemia, hemoglobin stable at 7.9 6 CVA with residual left-sided weakness 7 hypertension 8 hyperlipidemia 9 hyponatremia, improved Recommendation: Reviewed the CT of the chest, suggestive of underlying pneumonia in addition to his pulmonary edema, hence continue antibiotics, continue diuretics, and awaiting sputum cultures that are presently pending. Continue Zosyn for now. Follow-up chest x-ray in the next 24 hours, and if improving, then we could start addressing the issue of discharge planning. At this point, patient is not ready for discharge planning. Time with Patient: Less than 30
--- NOTE | 2016-12-24 14:58 | P.PN ---
Subjective Principal diagnosis: Non-STEMI Is an 86-year-old gentleman who presented to the hospital on this initially with symptoms of progressive dyspnea, he ruled in for non-Q-wave myocardial infarction. Patient also had evidence of pulmonary congestion and was diuresed with IV Lasix. This morning patient is in atrial fibrillation, has known history of paroxysmal atrial fibrillation. Patient was seen and examined this morning, feeling mildly better overall. Breathing stable. Weight down 2 kg today. INR today 2.3. Hemoglobin 8.3. BUN 44, creatinine 1.2 , potassium 4.0. We will give the patient 1 mg of Coumadin today. Patient continues to have a significant amount of peripheral edema. Continue IV Lasix for 24 hours. Objective - Vital Signs Vital signs: Vital Signs Temp 97.0 F L 12/24/16 11:54 Pulse 81 12/24/16 11:54 Resp 16 12/24/16 11:54 BP 105/56 12/24/16 11:54 Pulse Ox 97 12/24/16 11:54 Intake & Output 12/23/16 12/24/16 12/24/16 18:59 06:59 18:59 Intake Total 280 590 360 Output Total 1850 2801 Balance -1570 -2211 360 Weight 88 kg 86 kg Intake: Intake, IV Titration 50 Amount Piperacillin-Tazobactam 3 50 .375 gm In Dextrose/Water 1 50ml.bag @ 12.5 mls/hr IVPB Q8HR [facility] Rx#: [id number] Oral 280 540 360 Output: Urine 1850 2800 Stool 1 Other: Voiding Method Indwelling Catheter Indwelling Catheter Indwelling Catheter # Bowel Movements 1 - Exam PHYSICAL EXAMINATION: HEENT: Head is atraumatic, normocephalic. Pupils equal, round. Neck is supple. There is no elevated jugular venous pressure. HEART EXAMINATION: Heart S1, S2 normal. No murmur or gallop heard. CHEST EXAMINATION: Lungs reveal fine crackles to bilateral bases with diminished air entry bilaterally. ABDOMEN: Soft, nontender. Bowel sounds are heard. No organomegaly noted. EXTREMITIES: 2+ peripheral pulses with 2+ evidence of peripheral edema and no calf tenderness noted. NEUROLOGIC patient is awake, alert and oriented -3. . - Labs CBC & Chem 7: 12/24/16 05:49 12/24/16 05:49 Labs: Abnormal Lab Results - Last 24 Hours (Table) 12/23/16 12/23/16 12/23/16 Range/Units 15:54 19:48 20:53 RBC (4.30-5.90) m/uL Hgb (13.0-17.5) gm/dL Hct (39.0-53.0) % Lymphocytes # (1.0-4.8) k/uL PT (9.0-12.0) sec BUN (9-20) mg/dL Glucose (74-99) mg/dL POC Glucose (mg/dL) 200 H 217 H 202 H (75-99) mg/dL Calcium (8.4-10.2) mg/dL 12/23/16 12/24/16 12/24/16 Range/Units 22:05 05:49 05:49 RBC 3.31 L (4.30-5.90) m/uL Hgb 8.3 L (13.0-17.5) gm/dL Hct 26.6 L (39.0-53.0) % Lymphocytes # 0.7 L (1.0-4.8) k/uL PT (9.0-12.0) sec BUN 44 H (9-20) mg/dL Glucose 122 H (74-99) mg/dL POC Glucose (mg/dL) 198 H (75-99) mg/dL Calcium 8.2 L (8.4-10.2) mg/dL 12/24/16 12/24/16 12/24/16 Range/Units 06:25 08:14 11:16 RBC (4.30-5.90) m/uL Hgb (13.0-17.5) gm/dL Hct (39.0-53.0) % Lymphocytes # (1.0-4.8) k/uL PT 21.7 H (9.0-12.0) sec BUN (9-20) mg/dL Glucose (74-99) mg/dL POC Glucose (mg/dL) 215 H 168 H (75-99) mg/dL Calcium (8.4-10.2) mg/dL Microbiology - Last 24 Hours (Table) 12/22/16 16:27 Gram Stain - Preliminary Sputum Sputum Culture - Preliminary 12/20/16 02:30 Blood Culture - Preliminary Blood No Growth after 96 hours Assessment and Plan (1) Systolic CHF, acute on chronic Status: Acute (2) Ischemic cardiomyopathy Status: Acute (3) Pneumonia Status: Acute (4) Renal failure, acute Status: Acute (5) Paroxysmal a-fib Status: Acute (6) Anemia Status: Acute (7) NSTEMI (non-ST elevated myocardial infarction) Status: Acute Plan: From cardiology's perspective, we will give the patient 1 mg of Coumadin today. Check INR in the morning. Continue IV Lasix for 24 hours. Lytes BUN and creatinine in the morning. DNP note has been reviewed, I agree with a documented findings and plan of care. Patient was seen and examined.
[2016-12-24 16:19] LABS: Glucose,Whole Blood 222 mg/dL (75-99)
[2016-12-24] MEDS ORDERED: WARFARIN 1 MG TAB PO ONE (18:00)
[2016-12-24] MEDS: MELATONIN 3 MG TABLET PO SCH (20:02)
[2016-12-24] MEDS: ATORVASTATIN 40 MG TAB PO SCH (20:02)
[2016-12-24] MEDS: AMOXIC-POT CLAV 875-125MG 1 EACH TAB PO SCH (20:09)
[2016-12-24 20:44] LABS: Glucose,Whole Blood 143 mg/dL (75-99)
--- NOTE | 2016-12-24 21:06 | PN ---
DATE OF SERVICE: 12/24/2016 PRESENTING COMPLAINT: Tired. INTERVAL HISTORY: This patient presented with acute exacerbation of myocardial infarction, also had pulmonary edema, pneumonia, chronic obstructive pulmonary disease exacerbation. Patient looking better. Tolerated some diet. Actually walked up to the door today. Review of systems done for constitutional, cardiovascular, GI, pulmonary; relevant findings as above. Current medications include IV Zosyn. On examination, temperature 97.3, pulse 76, respiration 18, blood pressure 122/55, pulse ox 95% on 3 liters. GENERAL APPEARANCE: Sitting up, more perked up. EYES: Pupils equal. Conjunctivae normal. NECK: JVD not raised. Mass not palpable. RESPIRATORY: Effort normal. LUNGS: Diminished breath sounds. CARDIOVASCULAR: First and second sounds normal. No edema. ABDOMEN: Soft, nontender. Liver and spleen not palpable. PSYCHIATRY: More awake. Answering questions appropriately. INVESTIGATIONS: White count 7.9, hemoglobin 8.3. Potassium 4. BUN 44, creatinine 1.20. Accu-Cheks are noted. INR is 2.3. ASSESSMENT: 1. Acute ST elevation myocardial infarction affecting inferolateral wall, causing acute flash pulmonary edema, present on admission. 2. Pneumonia; suspect gram-negative organism, present on admission clinically improved. 3. Acute chronic obstructive pulmonary disease exacerbation in an ex-smoker. 4. Primary osteoarthritis of multiple joints, bilateral. 5. Paroxysmal atrial fibrillation, chronically on Coumadin. 6. Acute respiratory failure, hypoxic from flash pulmonary edema. 7. Ischemic cardiomyopathy ejection fraction 30 to 35%. 8. CODE STATUS: DNR. Overall the patient is doing better. Overall prognosis guarded. Should be able to hopefully go home tomorrow.
[2016-12-25] MEDS: FUROSEMIDE 10 MG/ML 4 ML VIAL IV SCH ×2 (00:10→08:17)
[2016-12-25] MEDS: METOPROLOL TARTRATE 25 MG TAB PO SCH (05:12)
[2016-12-25 06:09] LABS: Basophils % (A) 0 %; CHCM 30.7; Eosinophils # (A) 0.1 k/uL (0-0.7); Eosinophils % (A) 1 %; HCT 26.4 % (39.0-53.0); HDW 3.69; HGB 8.2 gm/dL (13.0-17.5); Hypochromasia Marked; Luc # (Auto) 0.27; Luc % (Auto) 3; Lymphocytes # (A) 0.7 k/uL (1.0-4.8); Lymphocytes % (A) 8 %; MCH 24.4 pg (25.0-35.0); MCHC 31.1 g/dL (31.0-37.0); MCV 78.4 fL (80.0-100.0); Mean Platelet Volume 7.2; Monocytes # (A) 0.6 k/uL (0-1.0); Monocytes % (A) 6 %; Neutrophils # (A) 7.9 k/uL (1.3-7.7); Neutrophils % (A) 82 %; Poikilocytosis Slight; RBC 3.37 m/uL (4.30-5.90); RDW 14.9 % (11.5-15.5); WBC 9.6 k/uL (3.8-10.6); WBC (Perox) 10.42
[2016-12-25 06:23] LABS: Glucose,Whole Blood 173 mg/dL (75-99)
[2016-12-25] MEDS: INSULIN LISPRO (humaLOG) 300 UNIT/3 ML VIAL SQ SCH ×2 (06:33→12:12)
[2016-12-25] MEDS: IPRATROPIUM-ALBUTEROL 3 ML NEB INHALATION SCH ×3 (07:48→15:08)
[2016-12-25 08:05] LABS: INR 3.1 (<1.1); Prothrombin Time 30.5 sec (9.0-12.0)
[2016-12-25] MEDS: metFORMIN 500 MG TAB PO SCH (08:16)
[2016-12-25] MEDS: ASPIRIN 81 MG CHEW PO SCH (08:16)
[2016-12-25] MEDS: SERTRALINE 50 MG TAB PO SCH (08:16)
[2016-12-25] MEDS: AMOXIC-POT CLAV 875-125MG 1 EACH TAB PO SCH (08:16)
[2016-12-25] MEDS: POTASSIUM CHLORIDE ER 20 MEQ TAB.ER PO SCH (08:16)
[2016-12-25] MEDS: PANTOPRAZOLE 40 MG TABLET PO SCH (08:16)
[2016-12-25] MEDS: LISINOPRIL 5 MG TAB PO SCH (08:17)
--- NOTE | 2016-12-25 08:50 | XR ---
EXAMINATION TYPE: XR chest 1V portable DATE OF EXAM: 12/25/2016 8:39 AM COMPARISON: 12/22/2016 HISTORY: Abnormal x-ray TECHNIQUE: Single frontal view of the chest is obtained. FINDINGS: There is improvement areas of diffuse bilateral infiltrate relative to the previous exam. Diffuse osteopenic change and arthropathy shoulders. IMPRESSION: 1. Persistent bilateral infiltrates which do demonstrate moderate improvement relative to the previou s exam.
[2016-12-25 08:53] LABS: Glucose,Whole Blood 152 mg/dL (75-99)
[2016-12-25] MEDS: ISOSORBIDE MONONITRATE ER 30 MG TAB.ER.24H PO SCH (10:33)
[2016-12-25 11:08] LABS: Anion Gap 10 mmol/L; Blood Urea Nitrogen 42 mg/dL (9-20); Calcium 8.4 mg/dL (8.4-10.2); Carbon Dioxide 34 mmol/L (22-30); Chloride 100 mmol/L (98-107); Glucose 177 mg/dL (74-99); Non-African American GFR(MDRD) 56 (>60 ml/min/1.73 sqM); Potassium 3.9 mmol/L (3.5-5.1); Sodium 144 mmol/L (137-145)
[2016-12-25 11:47] LABS: Glucose,Whole Blood 203 mg/dL (75-99)
--- NOTE | 2016-12-25 13:33 | P.PN ---
Subjective Principal diagnosis: Acute congestive heart failure secondary to systolic dysfunction possible underlying pneumonia, but felt to be less likely. 86-year-old male patient who is currently experiencing shortness of breath and he has developed diffuse breath and pulmonary infiltrates consistent with acute pulmonary edema with possible superimposed pneumonia. For this reason a pulmonary cath patient was requested. The patient is known to have diabetes and hypertension and chronic atrial fibrillation. The patient presented to the hospital because of increased cough and chest discomfort and he had ST segment changes in the inferolateral leads and he ruled in for myocardial infarction. At that point, the patient was started on IV heparin, cardiology consultation was requested and the patient declined to undergo any cardiac interventions/ catheterization. During his hospital stay, the patient became progressively more short of breath and I reviewed a series of chest x-rays was done since his admission and the patient developed diffuse but the pulmonary infiltrates, that are consistent with acute pulmonary edema and based on that he was started on a Lasix drip for diuresis. Note that his echocardiogram showed impaired LV function with an ejection fraction of 35% and the patient had mild concentric left hypertrophy, mild pulmonary hypertension, no other valvular disruption. Another concern is that the patient is having a superimposed pneumonia in addition to pulmonary edema. The patient is coughing out thick yellowish sputum yet he is afebrile and he denies having any pleurisy. His white count was elevated at time of admission at 18 and the permanent blood cultures showing gram-positive cocci and clusters. He did spike one temperature of 100.5 around midnight. Currently is on IV Zosyn. Note that the patient had a recent stroke approximately 3 months ago and he suffers from left-sided weakness. Nevertheless, he denies having any difficulties with swallowing food or any aspiration. On 12/21/2016, the patient is less short of breath. He denies having any other complaints other than some minimal congested cough. No fever. No chills. The patient is still being diuresis with IV Lasix and the patient has producing adequate amount of urine output. The fluid balance is negative for at least 3.4 L over the past 24 hours. Meanwhile, the blood work has shown a component of hyperchloremic hypernatremia and the sodium level is up to 147 and the patient has dropped his potassium down to 3.0 related to liver is diuresis. His creatinine is at 1.3 for now. Meanwhile, the patient's blood culture came back coagulase-negative staph which is probably a contaminant. No other complaints otherwise. The patient was taken off IV Zosyn and was placed on oral Augmentin. No follow-up chest x-ray from today. He is also being a to go with warfarin regarding approximately atrial fibrillation and his most recent INR is at 2.2. On 12/22/2016 the patient is being seen in follow-up. He continues to BE short of breath. He is still producing yellowish sputum and there is a concern of bilateral pneumonia rather than pulmonary edema going to the patient has not responded adequately to diuresis. Note that his initial presentation was consistent with an acute myocardial infarction and he has underlying congestion heart failure. The patient declined cardiac catheterization. He was diuresed adequately and the chest x-ray from today shows no interval change in the bilateral airspace disease that may be on the basis of either CHF or pneumonia. Based on this, a CAT scan of the chest will be ordered. Reevaluated today on 12/23/2016, continues to have shortness of breath, cough, the cough is productive with yellow phlegm. Cultures on the sputum have been requested. Patient is improving but not significantly in spite of diuretics and antibiotics as well as bronchodilators. His initial presentation was a presentation of acute myocardial infarction. Impaired LV function with EF of 35 percent, abnormal chest x-ray suggestive of pulmonary edema however the possibility of superimposed pneumonia is not entirely ruled out. Reevaluated today on 12/24/2016, patient is feeling better today, breathing easier, blood cultures remain negative, sputum so far is nondiagnostic, WBC count is 7.9 hemoglobin is 8.3 INR is 2.3. Patient is feeling much better compared to baseline. And he is wondering if he could be discharged home. From my perspective I think the patient should be considered for discharge planning today or tomorrow. Reevaluated today on 12/25/2016, patient continues to do well. His chest x-ray showed significant improvement in his bilateral interstitial edema/infiltrates. Patient could be seriously considered for discharge planning possibly to a rehab facility. Labs were reviewed he had a relatively normal CBC except for a hemoglobin of 8.2 he had a relatively normal electrolytes. BUN is 42 creatinine is 1.2 to INR is 3.1. Objective - Vital Signs Vital signs: Vital Signs Temp 98.2 F 12/25/16 12:00 Pulse 112 H 12/25/16 12:00 Resp 17 12/25/16 12:00 BP 118/95 12/25/16 12:00 Pulse Ox 94 L 12/25/16 12:00 Intake & Output 12/24/16 12/25/16 12/25/16 18:59 06:59 18:59 Intake Total 600 640 120 Output Total 250 1902 602 Balance 350 -1262 -482 Weight 84 kg 84 kg Intake: Intake, IV Titration 50 Amount Piperacillin-Tazobactam 3 50 .375 gm In Dextrose/Water 1 50ml.bag @ 12.5 mls/hr IVPB Q8HR [facility] Rx#: [id number] Oral 600 590 120 Output: Urine 250 1900 600 Stool 2 2 Other: Voiding Method Indwelling Catheter Indwelling Catheter Indwelling Catheter # Voids 1 1 1 # Bowel Movements 1 1 - Exam Physical Exam: Revealed an 86-year-old white male in no distress. HEENT:[Neck is supple.] [No neck masses.] [No thyromegaly.] [No JVD.] Chest: [Diminished breath sounds bilaterally with crackles at the bases especially at the left base.] Cardiac Exam: [Normal S1 and S2, no S3 gallop, no murmur.] Abdomen: [Soft, nontender, no megaly, no rebound, no guarding, normal bowel sounds.] Extremities: [No clubbing, no edema, no cyanosis.] Neurological Exam: [No focal neurologic deficit.] - Labs CBC & Chem 7: 12/25/16 05:47 12/25/16 05:47 Labs: Abnormal Lab Results - Last 24 Hours (Table) 12/24/16 12/24/16 12/25/16 Range/Units 16:14 20:42 05:47 RBC 3.37 L (4.30-5.90) m/uL Hgb 8.2 L (13.0-17.5) gm/dL Hct 26.4 L (39.0-53.0) % MCV 78.4 L (80.0-100.0) fL MCH 24.4 L (25.0-35.0) pg Neutrophils # 7.9 H (1.3-7.7) k/uL Lymphocytes # 0.7 L (1.0-4.8) k/uL PT (9.0-12.0) sec Carbon Dioxide (22-30) mmol/L BUN (9-20) mg/dL Glucose (74-99) mg/dL POC Glucose (mg/dL) 222 H 143 H (75-99) mg/dL 12/25/16 12/25/16 12/25/16 Range/Units 05:47 05:47 06:22 RBC (4.30-5.90) m/uL Hgb (13.0-17.5) gm/dL Hct (39.0-53.0) % MCV (80.0-100.0) fL MCH (25.0-35.0) pg Neutrophils # (1.3-7.7) k/uL Lymphocytes # (1.0-4.8) k/uL PT 30.5 H (9.0-12.0) sec Carbon Dioxide 34 H (22-30) mmol/L BUN 42 H (9-20) mg/dL Glucose 177 H (74-99) mg/dL POC Glucose (mg/dL) 173 H (75-99) mg/dL 12/25/16 12/25/16 Range/Units 08:51 11:45 RBC (4.30-5.90) m/uL Hgb (13.0-17.5) gm/dL Hct (39.0-53.0) % MCV (80.0-100.0) fL MCH (25.0-35.0) pg Neutrophils # (1.3-7.7) k/uL Lymphocytes # (1.0-4.8) k/uL PT (9.0-12.0) sec Carbon Dioxide (22-30) mmol/L BUN (9-20) mg/dL Glucose (74-99) mg/dL POC Glucose (mg/dL) 152 H 203 H (75-99) mg/dL Microbiology - Last 24 Hours (Table) 12/20/16 02:30 Blood Culture - Preliminary Blood No Growth after 120 hours Assessment and Plan Plan: 1 acute inferolateral wall myocardial infarction, currently free of any chest pain 2 CHF with impaired LV function with ejection fraction of 35% 3 diffuse bilateral pulmonary infiltrates, rule out pulmonary edema in the setting of an acute myocardial infarction special that the patient is an underlying cardiomyopathy with an ejection fraction of 35%. Nevertheless the patient has not responded adequately to diuresis. Superimposed pneumonia is also considered. The patient was receiving Lasix drips and he was switched to IV Lasix 40 mg every 8 hours. The patient is also on antibiotics. He was initially on IV Zosyn and he was switched to Augmentin by medical team. Meanwhile, today chest x-ray still showing bilateral airspace disease and further investigation will be needed. 4 gram-positive cocci in the blood, and clusters, likely coagulase-negative staph or a contaminant, staph epidermidis 5 chronic anemia, hemoglobin stable at 7.9 6 CVA with residual left-sided weakness 7 hypertension 8 hyperlipidemia 9 hyponatremia, improved Recommendation: Reviewed his chest x-ray from today, significant improvement is noted by chest x-ray, clinical improvement is also noted, hence patient could be considered for discharge planning and follow-up on outpatient basis. Has to be cleared by cardiology for discharge. Time with Patient: Less than 30
--- NOTE | 2016-12-25 14:55 | P.PN ---
Subjective Principal diagnosis: Non-STEMI Is an 86-year-old gentleman who presented to the hospital on this initially with symptoms of progressive dyspnea, he ruled in for non-Q-wave myocardial infarction. Patient also had evidence of pulmonary congestion and was diuresed with IV Lasix. This morning patient is in atrial fibrillation, has known history of paroxysmal atrial fibrillation. Patient was seen and examined this morning, feeling mildly better overall. Breathing stable. Weight down 2 kg today. INR today 3.1. Hemoglobin 8.2. BUN 42, creatinine 1.2 , potassium 3.9. We will hold Coumadin today. Objective - Vital Signs Vital signs: Vital Signs Temp 98.2 F 12/25/16 12:00 Pulse 112 H 12/25/16 12:00 Resp 17 12/25/16 12:00 BP 118/95 12/25/16 12:00 Pulse Ox 94 L 12/25/16 12:00 Intake & Output 12/24/16 12/25/16 12/25/16 18:59 06:59 18:59 Intake Total 600 640 120 Output Total 250 1902 602 Balance 350 -1262 -482 Weight 84 kg 84 kg Intake: Intake, IV Titration 50 Amount Piperacillin-Tazobactam 3 50 .375 gm In Dextrose/Water 1 50ml.bag @ 12.5 mls/hr IVPB Q8HR [facility] Rx#: [id number] Oral 600 590 120 Output: Urine 250 1900 600 Stool 2 2 Other: Voiding Method Indwelling Catheter Indwelling Catheter Indwelling Catheter # Voids 1 1 1 # Bowel Movements 1 1 - Exam PHYSICAL EXAMINATION: HEENT: Head is atraumatic, normocephalic. Pupils equal, round. Neck is supple. There is no elevated jugular venous pressure. HEART EXAMINATION: Heart S1, S2 normal. No murmur or gallop heard. CHEST EXAMINATION: Lungs reveal fine crackles to bilateral bases with improvement in air entry bilaterally. ABDOMEN: Soft, nontender. Bowel sounds are heard. No organomegaly noted. EXTREMITIES: 2+ peripheral pulses with trace evidence of peripheral edema and no calf tenderness noted. NEUROLOGIC patient is awake, alert and oriented -3. . - Labs CBC & Chem 7: 12/25/16 05:47 12/25/16 05:47 Labs: Abnormal Lab Results - Last 24 Hours (Table) 12/24/16 12/24/16 12/25/16 Range/Units 16:14 20:42 05:47 RBC 3.37 L (4.30-5.90) m/uL Hgb 8.2 L (13.0-17.5) gm/dL Hct 26.4 L (39.0-53.0) % MCV 78.4 L (80.0-100.0) fL MCH 24.4 L (25.0-35.0) pg Neutrophils # 7.9 H (1.3-7.7) k/uL Lymphocytes # 0.7 L (1.0-4.8) k/uL PT (9.0-12.0) sec Carbon Dioxide (22-30) mmol/L BUN (9-20) mg/dL Glucose (74-99) mg/dL POC Glucose (mg/dL) 222 H 143 H (75-99) mg/dL 12/25/16 12/25/16 12/25/16 Range/Units 05:47 05:47 06:22 RBC (4.30-5.90) m/uL Hgb (13.0-17.5) gm/dL Hct (39.0-53.0) % MCV (80.0-100.0) fL MCH (25.0-35.0) pg Neutrophils # (1.3-7.7) k/uL Lymphocytes # (1.0-4.8) k/uL PT 30.5 H (9.0-12.0) sec Carbon Dioxide 34 H (22-30) mmol/L BUN 42 H (9-20) mg/dL Glucose 177 H (74-99) mg/dL POC Glucose (mg/dL) 173 H (75-99) mg/dL 12/25/16 12/25/16 Range/Units 08:51 11:45 RBC (4.30-5.90) m/uL Hgb (13.0-17.5) gm/dL Hct (39.0-53.0) % MCV (80.0-100.0) fL MCH (25.0-35.0) pg Neutrophils # (1.3-7.7) k/uL Lymphocytes # (1.0-4.8) k/uL PT (9.0-12.0) sec Carbon Dioxide (22-30) mmol/L BUN (9-20) mg/dL Glucose (74-99) mg/dL POC Glucose (mg/dL) 152 H 203 H (75-99) mg/dL Microbiology - Last 24 Hours (Table) 12/20/16 02:30 Blood Culture - Preliminary Blood No Growth after 120 hours Assessment and Plan (1) Systolic CHF, acute on chronic Status: Acute (2) Ischemic cardiomyopathy Status: Acute (3) Pneumonia Status: Acute (4) Renal failure, acute Status: Acute (5) Paroxysmal a-fib Status: Acute (6) Anemia Status: Acute (7) NSTEMI (non-ST elevated myocardial infarction) Status: Acute Plan: From cardiology's perspective, we'll hold the Coumadin today, check PT/INR in the morning. Discontinue IV Lasix and change patient over to oral diuretics. DNP note has been reviewed, I agree with a documented findings and plan of care. Patient was seen and examined.
[2016-12-25] MEDS ORDERED: FUROSEMIDE 40 MG TAB PO SCH (16:00)
[2016-12-25 16:27] VITALS: BP 114/66; PULSE 75; RESP 18; TEMP 98.8
--- NOTE | 2016-12-26 08:08 | DS ---
DATE OF ADMISSION: 12/19/2016 DATE OF DISCHARGE: 12/25/2016 FINAL DIAGNOSIS(ES): 1. Acute ST elevation myocardial infarction effecting inferolateral wall, present on admission, causing acute congestive heart failure. 2. Pneumonia; suspect gram-negative organism, present on admission. 3. Acute chronic obstructive pulmonary disease exacerbation in a patient who is an ex-smoker. 4. Primary osteoarthritis in multiple joints, bilateral. 5. Paroxysmal atrial fibrillation, chronically on Coumadin. 6. Acute respiratory failure, hypoxic from flash pulmonary edema. 7. Ischemic cardiomyopathy; ejection fraction 30% to 35% CONSULTATIONS: 1. Dr. Schmidt from pulmonary. 2. Dr. Sánchez from cardiology. HOSPITAL COURSE: This patient presented with acute MN, Dr. Sánchez spoke to the patient. He declined cardiac catheterization. Patient also pneumonia and COPD exacerbation, 2-D echo showed an EF of 35% to 40%. CT scan of the chest did show pneumonia. Patient overall prognosis was guarded. Patient was weak and tired. On examination, lungs decreased breath sounds. PSYCH: Patient able to answer questions. INVESTIGATIONS: Potassium 3.9, hemoglobin 8.2. DISCHARGE MEDICATIONS: 1. Aspirin 162 mg a day. 2. Vitamin D3 2000 units a day. 3. Vitamin B12 injection 1000 mcg subcu once a month. 4. Imdur ER 30 mg a day. 5. Boost 237 mL p.o. at bedtime. 6. Lansoprazole 30 mg p.o. daily. 7. Zestril 10 mg p.o. daily. 8. Melatonin 3 mg p.o. q.h.s. 9. Zoloft 50 mg p.o. daily. 10. Coumadin 2 mg p.o. q.h.s. 11. Glucophage 500 mg p.o. b.i.d. 12. Augmentin 875, 1 tablet q.12, 6 tablets. 13. Aspirin 81 mg daily. 14. Lipitor 40 mg q.h.s. 15. Lasix 40 mg daily. 16. DuoNeb q.i.d. 17. Lopressor 25 p.o. b.i.d. 18. Nitrostat 0.4 sublingual q.5 p.r.n. 19. Potassium 20 mEq daily. 20. Aldactone 25 mg daily. LABS: CBC, BMP and INR in 3 days. Follow up with family doctor in 2 days. Follow up with Dr. Sánchez on 01/03/2017. DISPOSITION: [facility] in [place]. Discharge planning more than 35 minutes.
== END 2016-12-25 18:03 | disposition home health service (06) | DRG 280 ==
LOC: EC 22:30 → 6SEL 12-19 00:04
PROVIDERS: ADMIT Hospitalist; ATTEND Hospitalist
DX: I21.19 ST elevation (STEMI) myocardial infarction involving other coronary artery of inferior wall (principal); J96.01 Acute respiratory failure with hypoxia; I50.23 Acute on chronic systolic (congestive) heart failure; J18.9 Pneumonia, unspecified organism; N17.9 Acute kidney failure, unspecified; E87.0 Hyperosmolality and hypernatremia; I13.0 Hypertensive heart and chronic kidney disease with heart failure and stage 1 through stage 4 chronic kidney disease, or unspecified chronic kidney disease; J44.0 Chronic obstructive pulmonary disease with (acute) lower respiratory infection; I69.354 Hemiplegia and hemiparesis following cerebral infarction affecting left non-dominant side; J44.1 Chronic obstructive pulmonary disease with (acute) exacerbation; E11.22 Type 2 diabetes mellitus with diabetic chronic kidney disease; I27.2 Other secondary pulmonary hypertension; I25.5 Ischemic cardiomyopathy; I48.0 Paroxysmal atrial fibrillation; D64.9 Anemia, unspecified; N18.9 Chronic kidney disease, unspecified; Z66 Do not resuscitate; M79.7 Fibromyalgia; I25.10 Atherosclerotic heart disease of native coronary artery without angina pectoris; I25.2 Old myocardial infarction; E87.6 Hypokalemia; E78.5 Hyperlipidemia, unspecified; M19.91 Primary osteoarthritis, unspecified site; Z87.891 Personal history of nicotine dependence; Z79.01 Long term (current) use of anticoagulants; Z79.82 Long term (current) use of aspirin; Z79.899 Other long term (current) drug therapy; Z86.59 Personal history of other mental and behavioral disorders
CPT/HCPCS: 36415; 71010; 71250; 80048; 80053; 80061; 82550; 82553; 83036; 83605; 83735; 83880; 84484; 85025; 85610; 85730; 87040; 87070; 87077; 87186; 87205; 87502; 93005; 93306; 94640; 94660; 94760; 96365; 96366; 96367; 96376; 99285